=== PATIENT | male | born 1950 | race African-American/Black ===

== ENCOUNTER → 2016-10-16 | Day surgery (SDC) | payer MEDICARE, MEDICAID ==
--- NOTE | 2016-10-15 13:38 | Pre-Procedure Note/Attestation ---
Pre-Procedure Note/Attestation Complete Prior to Procedure Planned Procedure: right Procedure Narrative: phaco with IOL Indications for Procedure Pre-Operative Diagnosis: cataract Attestation I attest that I discussed the nature of the procedure; its benefits; risks and complications; and alternatives (and the risks and benefits of such alternatives ), prior to the procedure, with the patient (or the patient's legal parts sales representative). I attest that, if there was a reasonable possibility of needing a blood transfusion, the patient (or the patient's legal parts sales representative) was given the [facility] standardized written summary, pursuant to the [place] Blood Safety Act ([place] Health and Safety Code # 1645, as amended). I attest that I re-evaluated the patient just prior to the surgery and that there has been no change in the patient's H&P, except as documented below: NATALY HUYNH Oct 15, 2016 13:38
--- NOTE | 2016-10-15 13:39 | Opthalmology H&P ---
Ophthalmology H&P H&P Chief Complaint: decreased vision in right eye HPI Vision Affects Ability to: read, focus/use eyes together HPI Narrative blurry vision Exam Visual Acuity: OD: 20/125 OS: 20/180 Tension: OD: 15 OS: 15 Eye Exam: normal OU: anterior chambers, corneas, external exam, levator function, marginal reflex distance, palpebral fissure-width, findings: fundus exam - NPDR OU, lens - OD: psc OS: psc Assessment/Plan Diagnosis: (1) Cataract Treatment Plan: cataract extraction w/ lens implant Goals of Treatment: improvement of vision, enhance quality of life Attestation Attestation The risks and benefits of the surgery as well as alternative procedures were explained to the patient in detail. NATALY HUYNH Oct 15, 2016 13:39
[2016-10-16] VITALS (8 sets, daily range): BP systolic 158–189; BP diastolic 76–110
[~2016-10-16] VITALS: Ht 188 cm; Wt 127.0 kg
[~2016-10-16] MED LIST: ALBUTEROL2.5 MG/3 M INH; ANORO ELLIPTA1 EACH INH; Akten 3.5% 1ml Btl RIGHT EYE ONE; BENADRYL25 MG ORAL; BSS 15ml BTL ONE; BSS 500ml btl ONE; Dexamethasone 4mg/ml vial ONE; EPINEPHrine 1mg/1ml Amp ONE; FOLIC ACID1 MG ORAL; GABAPENTIN PO; LEVEMIR FL100 UNIT/1 SUBQ; LR 1000ml ONE; Maxitrol Opth Oint 3.5gm ONE; Midazolam 2mg/2ml Inj ONE; NOVOLOG100 UNIT/3 SUBQ; PREDNISONE10 MG ORAL; PROAIR HFA8.5 GM INH; Povidone-Iodine 5% opth solution ONE; Pred Forte 1% Opth Susp 1ml ONE; Propofol 10mg/ml 20ml IV ONE; Sodium Hyaluronate 14 mg/ml 0.85ml ONE; TAMSULOSIN HCL0.4 MG ORAL; Tobramycin Op Soln 0.3% RIGHT EYE ONE; [UNRECOGNIZED DRUG - OTHER] PO; acetaZOLAMIDE 500mg Inj ONE; fentaNYL 100 mcg/2 mL IV ONE
[2016-10-16] MEDS: Cyclopentolate 1% Opth Sol RIGHT EYE SCH ×3 (08:05→08:35)
[2016-10-16] MEDS: Diclofenac Sod 0.1% Op Soln RIGHT EYE SCH ×3 (08:07→08:24)
[2016-10-16] MEDS: Tropicamide 1% Opth Soln RIGHT EYE SCH ×3 (08:07→08:35)
[2016-10-16] MEDS: Phenylephrine 10% Opth Soln 5ml RIGHT EYE SCH ×2 (08:23→08:35)
--- NOTE | 2016-10-16 14:14 | Anethesia Preoperative Eval ---
Anesthesia Pre-op PMH/ROS General Date of Evaluation: Oct 16, 2016 Time of Evaluation: 09:10 Anesthesiologist: Jerry ASA Score: ASA 3 Mallampati Score Class I : Soft palate, uvula, fauces, pillars visible Class II: Soft palate, uvula, fauces visible Class III: Soft palate, base of uvula visible Class IV: Only hard plate visible Mallampati Classification: Class III Surgeon: Bessy Diagnosis: R eye cataract Surgical Procedure: R eye catarct extraction with IOL Anesthesia History: none Family History: no anesthesia problems Allergies: Coded Allergies: AZATHIOPRINE (Verified Adverse Reaction, Intermediate, nausea; vomiting, ) LORATADINE (Verified Adverse Reaction, Mild, nausea, 10/16/16) Past Medical History Cardiovascular: Reports: HTN - poorly controled, Denies: CAD, VA, arrhythmia, other, valve dz Pulmonary: Reports: COPD, ROB Gastrointestinal/Genitourinary: Reports: ESRD - no HD, GERD, Denies: CRI, other Neurologic/Psychiatric: Reports: depression/anxiety, Denies: CVA, TIA, dementia, other Endocrine: Reports: DM - on insulin, Denies: hypothyroidism, other, steroids HEENT: Reports: cataract (L), cataract (R), Denies: NULATO (L), NULATO (R), glaucoma, other Hematology/Immune: Reports: anemia - of chronic d-se, Denies: DVT, bleeding disorder, other Musculoskeletal/Integumentary: Denies: DDD, DJD, OA, RA, edema, other Other: obesity - morbid PMH Narrative: as above PSxH Narrative: see chart Anesthesia Pre-op Phys. Exam Physician Exam Last Vital Signs Date Time Temp Pulse Resp B/P Pulse Ox O2 Delivery O2 Flow Rate FiO2 10/16/16 11:00 78 23 166/85 98 Room Air 10/16/16 10:31 97.4 10/16/16 10:10 3.0 Constitutional: NAD Neurologic: CN 2-12 intact Cardiovascular: RRR, no M/R/G Respiratory: other - some wheezing Gastrointestinal: S/NT/ND Airway Exam Mallampati Score: Class III MO: limited Neck: short ROM: limited Teeth: missing Dentures: no lower, no upper Anesthesia Pre-op A/P Labs see chart Studies Pre-op Studies: EKG - SR Risk Assessment & Plan Assessment: ASA 3 Plan: MAC Status Change Before Surgery: MYRNA Garcia M.D. Oct 16, 2016 14:14
--- NOTE | 2016-10-16 14:17 | Immediate Post-Op Evaluation ---
Immediate Post-Op Evalulation Immediate Post-Op Evalulation Procedure: R eye cataract extraction with IOL Date of Evaluation: Oct 16, 2016 Time of Evaluation: 09:48 IV Fluids: 200 Blood Products: none Estimated Blood Loss: none Urinary Output: none Blood Pressure Systolic: 174 Blood Pressure Diastolic: 174 Pulse Rate: 76 Respiratory Rate: 26 O2 Sat by Pulse Oximetry: 97 Temperature (Fahrenheit): 97.4 Pain Score (1-10): 2 Nausea: No Vomiting: No Complications none Patient Status: awake, patent, none Hydration Status: adequate MYRNA JIMENEZ M.D. Oct 16, 2016 14:17
--- NOTE | 2016-10-16 14:19 | 48 Hour Post Anesthesia Eval ---
Post Anesthesia Evaluation Procedure: R eye cataract extraction with IOL Date of Evaluation: Oct 16, 2016 Time of Evaluation: 14:18 Blood Pressure Systolic: 168 0: 76 Pulse Rate: 68 Respiratory Rate: 24 Temperature (Fahrenheit): 97.6 O2 Sat by Pulse Oximetry: 99 Airway: patent Nausea: No Vomiting: No Pain Intensity: 1 Hydration Status: adequate Cardiopulmonary Status: stable Mental Status/LOC: patient returned to baseline Follow-up Care/Observations: n/a Post-Anesthesia Complications: none Follow-up care needed: ready to discharge MYRNA JIMENEZ M.D. Oct 16, 2016 14:19
--- NOTE | 2016-10-20 12:29 | Brief Operative Note ---
Immediate Post Operative Note Operative Note Chief Complaint: bluryy vision, Pre-op Diagnosis: cataract, OD Procedure: phaco with IOL, OD Post-op Diagnosis: Pseudophakia, OD Post-op Diagnosis: same as pre-op Findings: consistent w/pre-op dx studies Surgeon: Bessy Anesthesiologist: Jerry Anesthesia: MAC Specimen: none Complications: none Estimated Blood Loss: none Drains: none Implant(s) used?: Yes NATALY HUYNH Oct 20, 2016 12:29
--- NOTE | 2016-10-20 12:30 | Operative Note - PDOC ---
Operative Note Operative Note Date of Operation/Procedure: Oct 16, 2016 Chief Complaint: bluryy vision, Pre-op Diagnosis: cataract, OD Procedure: phaco with IOL, OD Post-op Diagnosis: Pseudophakia, OD Post-op Diagnosis: same as pre-op Operative Findings: consistent w/pre-op dx studies Surgeon: Bessy Anesthesiologist: Jerry Anesthesia: MAC Specimen: none Complications: none Estimated Blood Loss: none Drains: none Implant(s) used?: Yes Indications for Procedure cataract Description of Procedure This patient has been complaining visually significant cataract in the affected eye with the best corrected visual acuity under moderate glare conditions worse. The patient complains of difficulties with glare in performing activities of daily living and wants to manage personal affairs with comfort and accuracy and see well enough to move with safety at home and outdoors. ~~~ The risks, benefits and alternatives of the procedure were discussed with the patient in the office prior to scheduling surgery. All questions from the patient were answered after the surgical procedure was explained in detail. The risks of the procedure as explained to the patient include, but are not limited to, pain, infection, bleeding, loss of vision, retinal detachment, need for further surgery, loss of lens nucleus, double vision, etc. Alternative procedures were discussed which include, to do nothing or seek a second opinion. Informed consent for this procedure was obtained from the patient. The patient was referred to a primary care physician for a cardiopulmonary clearance prior to surgery, after proper evaluation was done patient was properly scheduled for outpatient surgery. The patient was brought to the operating room where the anesthesiologist established I.V. lines and cardiac monitoring leads. Mild intravenous sedation was administered.~~ The patient was then prepared with a 5% solution of povidone -iodine to the conjunctival fornix and lashes, and a 10% solution of povidone- iodine to the lids and periorbital skin. The patient was then draped in the usual sterile fashion. A lid speculum was then placed in the operative eye. A keratome blade was then used to create a biplanar incision into the anterior chamber. Viscoelastics was then instilled into the anterior chamber. A capsulorrhexis was then fashioned with an utrata forceps. BSS and a cannula were then used to hydrodissect and hydro delineate the lens. Paracentesis incision was made at 3 o'clock with sharp blade. The phacoemulsification unit, after being properly adjusted~ and tested, was then used to emulsify the nucleus. Residual cortical material was aspirated with the irrigation and aspiration unit. Healon was then instilled into the anterior chamber. The corneal wound was then enlarged to the size of the optic with the alejandra keratome blade. The intraocular lens was then inspected for right~ power and size~ and thought to be satisfactory. Then the lens was gently placed in the capsular bag. Positioning within the capsular bag was confirmed by direct visualization. Viscoelastics~ was removed from the anterior chamber using the irrigation and aspiration unit. The corneal wound was then tested for leaks and none were found. The lid speculum were then removed. Sponge and needle counts were correct. An eye patch and shield were placed over the operative eye. The patient was taken to the recovery room in stable condition. There were no complications. The patient tolerated the procedure well. The patient was then transferred to the ambulatory surgery unit in stable and satisfactory condition , was given detailed written instructions and asked to follow up~ in the office the next day. ~ ~ Dictated & Transcribed: [facility] Gurmeet PORRAS JAMES Oct 20, 2016 12:30
== END | disposition home or self-care (01) ==
LOC: SUR 06:05
DX: H26.9 Unspecified cataract (principal); I12.9 Hypertensive chronic kidney disease with stage 1 through stage 4 chronic kidney disease, or unspecified chronic kidney disease; N18.4 Chronic kidney disease, stage 4 (severe); I25.10 Atherosclerotic heart disease of native coronary artery without angina pectoris; I50.9 Heart failure, unspecified; I73.9 Peripheral vascular disease, unspecified; J44.9 Chronic obstructive pulmonary disease, unspecified; J45.909 Unspecified asthma, uncomplicated; G47.33 Obstructive sleep apnea (adult) (pediatric); M19.90 Unspecified osteoarthritis, unspecified site; N40.0 Benign prostatic hyperplasia without lower urinary tract symptoms; E11.9 Type 2 diabetes mellitus without complications; D63.1 Anemia in chronic kidney disease; E66.01 Morbid (severe) obesity due to excess calories; F32.9 Major depressive disorder, single episode, unspecified; F41.9 Anxiety disorder, unspecified; Z91.09 Other allergy status, other than to drugs and biological substances
CPT/HCPCS: 66984; 82962; J0171; J1100; J1120; J2250; J2704; J3010; J3370; J7120; V2632; 94003; 94150

== ENCOUNTER 2017-07-23 20:43 | Inpatient (IN) | payer MEDICARE, MEDICAID ==
[~2017-07-23] VITALS: Ht 185.4 cm; Wt 111.6 kg
[~2017-07-23 20:43] MED LIST changes: -Akten 3.5% 1ml Btl RIGHT EYE ONE; -BSS 15ml BTL ONE; -BSS 500ml btl ONE; -Dexamethasone 4mg/ml vial ONE; -EPINEPHrine 1mg/1ml Amp ONE; -LR 1000ml ONE; -Maxitrol Opth Oint 3.5gm ONE; -Midazolam 2mg/2ml Inj ONE; -Povidone-Iodine 5% opth solution ONE; -Pred Forte 1% Opth Susp 1ml ONE; -Propofol 10mg/ml 20ml IV ONE; -Sodium Hyaluronate 14 mg/ml 0.85ml ONE; -Tobramycin Op Soln 0.3% RIGHT EYE ONE; -acetaZOLAMIDE 500mg Inj ONE; -fentaNYL 100 mcg/2 mL IV ONE
[2017-07-24 01:50] VITALS: BP 140/93
[2017-07-24 04:00] VITALS: BP 145/86
[2017-07-24] MEDS: NovoLOG Insulin Flexpen SUBQ SCH ×4 (07:19→20:55)
[2017-07-24 08:00] VITALS: BP 165/92
[2017-07-24] MEDS ORDERED: Aspirin Baby 81mg ORAL SCH (09:00)
[2017-07-24] MEDS ORDERED: Torsemide 10mg tab ORAL SCH (09:00)
[2017-07-24] MEDS ORDERED: Spironolactone 25mg tab ORAL SCH (09:00)
[2017-07-24] MEDS: Carvedilol 12.5mg tab ORAL SCH ×2 (10:06→20:52)
[2017-07-24 11:08] LABS: BASOPHILS % (AUTO) 0.8 % (0.0-2.0); EOSINOPHILS % (AUTO) 10.7 % (0.0-3.0); HEMATOCRIT 31.7 % (42.0-52.0); HEMOGLOBIN 10.2 G/DL (14.2-18.0); LYMPHOCYTES % (AUTO) 24.8 % (20.0-45.0); MEAN CORPUSCULAR VOLUME 94 FL (80-99); MONOCYTES % (AUTO) 6.2 % (1.0-10.0); NEUTROPHILS % (AUTO) 57.6 % (45.0-75.0); PLATELET COUNT 452 K/UL (150-450); RED BLOOD COUNT 3.39 M/UL (4.70-6.10); RED CELL DISTRIBUTION WIDTH 15.2 % (11.6-14.8); WHITE BLOOD COUNT 10.9 K/UL (4.8-10.8)
[2017-07-24 11:29] LABS: ALANINE AMINOTRANSFERASE 18 U/L (12-78); ALBUMIN 3.1 G/DL (3.4-5.0); ALBUMIN/GLOBULIN RATIO 0.6 (1.0-2.7); ALKALINE PHOSPHATASE 120 U/L (46-116); ANION GAP 10 mmol/L (5-15); ASPARTATE AMINO TRANSFERASE 17 U/L (15-37); BILIRUBIN,TOTAL 0.2 MG/DL (0.2-1.0); BLOOD UREA NITROGEN 37 mg/dL (7-18); CALCIUM 7.9 MG/DL (8.5-10.1); CARBON DIOXIDE 24 MMOL/L (21-32); CHLORIDE 105 MMOL/L (98-107); CHOLESTEROL 249 MG/DL (< 200); HDL CHOLESTEROL 30 MG/DL (40-60); PHOSPHORUS 5.1 MG/DL (2.5-4.9); POTASSIUM 5.1 MMOL/L (3.5-5.1); SODIUM 139 MMOL/L (136-145); TRIGLYCERIDES 371 MG/DL (30-150)
[2017-07-24] MEDS: Heparin 5000 units/ml inj SUBQ SCH ×2 (11:31→20:59)
[2017-07-24] MEDS: Levemir Flexpen SUBQ SCH (11:39)
[2017-07-24 12:00] VITALS: BP 153/88
--- NOTE | 2017-07-24 14:05 | History & Physical ---
History and Physical History & Physicial Dictated for Int Med-Dr Fontanez no. [id number]. NIEVES LAGUNA Jul 24, 2017 14:05
--- NOTE | 2017-07-24 15:48 | Consultation ---
Consult Note Consult Note asked to eval for renal failure- CHIEF COMPLAINT: The patient is a 66-year-old male, presents with chief complaint of chest pain and dizziness. The patient has a history of congestive heart failure and COPD. The patient states yesterday he awoke and took his blood pressure. Blood pressure was 148/89. The patient took a p.r.n. clonidine and Coreg. The patient states his blood pressure dropped to 98/60. The patient then was on his way to get his nitroglycerin from the bathroom. The patient fell. The patient states he was having dizziness. The patient denies loss of consciousness. The patient states he fell "unsteady". The patient also began to experience left-sided chest pain, which lasted approximately 5 to 10 minutes. The patient called EMS. The patient presented initially to [facility] emergency room. The patient is transferred to [facility] for insurance purposes. The patient is admitted for chest pain to rule out acute coronary syndrome and vertigo. PAST MEDICAL HISTORY: 1. Congestive heart failure. 2. Chronic obstructive pulmonary disease. 3. Diabetes type 2. 4. Hypertension. 5. Hypercholesterolemia. 6. Systemic lupus. 7. Renal failure. examined- data reviewed Patient aware of CKD and was told to need HD soon Assessment/Plan CKD boarderline need for HD Lupus DM HTN Obese High Cholestrol BPH COPD Anemia CAD Plan: Adjust bp meds Add nitrate asa beta blockers SQ heparin Anemia mejía Optimize cardiac status per cardiology Kidney KATHI and 2D Echo monitor troponin I Per orders AVELINA MARTE Jul 24, 2017 15:48
[2017-07-24 16:00] VITALS: BP 135/78
--- NOTE | 2017-07-24 16:47 | History and Physical Report ---
DATE OF ADMISSION: 07/23/2017 CHIEF COMPLAINT: The patient is a 66-year-old male, presents with chief complaint of chest pain and dizziness. HISTORY OF PRESENT ILLNESS: The patient has a history of congestive heart failure and COPD. The patient states yesterday he awoke and took his blood pressure. Blood pressure was 148/89. The patient took a p.r.n. clonidine and Coreg. The patient states his blood pressure dropped to 98/60. The patient then was on his way to get his nitroglycerin from the bathroom. The patient fell. The patient states he was having dizziness. The patient denies loss of consciousness. The patient states he fell "unsteady". The patient also began to experience left-sided chest pain, which lasted approximately 5 to 10 minutes. The patient called EMS. The patient presented initially to [facility] emergency room. The patient is transferred to [facility] for insurance purposes. The patient is admitted for chest pain to rule out acute coronary syndrome and vertigo. PAST MEDICAL HISTORY: Significant for 1. Congestive heart failure. 2. Chronic obstructive pulmonary disease. 3. Diabetes type 2. 4. Hypertension. 5. Hypercholesterolemia. 6. Systemic lupus. 7. Renal failure. PAST SURGICAL HISTORY: The patient denies. CURRENT MEDICATIONS: 1. Clonidine 0.1 mg p.o. q.4 h. p.r.n. 2. Zetia 10 mg one tablet p.o. daily. 3. Folic acid 1 mg p.o. daily. 4. Januvia 100 mg p.o. daily. 5. Spironolactone 25 mg p.o. daily. 6. Coreg 12.5 mg p.o. twice daily. 7. Neurontin 300 mg p.o. twice daily. 8. Flomax 0.4 mg p.o. daily. 9. NovoLog sliding scale before breakfast and at bedtime. 10. Levemir 20 units subcutaneously at bedtime. ALLERGIES: 1. Claritin. 2. Imuran. SOCIAL HISTORY: The patient is and is retired. The patient denies tobacco use, having quit in 2006. The patient denies alcohol use, having quit in 2006. REVIEW OF SYSTEMS: CONSTITUTIONAL: The patient denies weight loss or weight gain. The patient denies fevers or chills. HEENT: The patient denies ear or throat pain. The patient denies headache. CARDIOVASCULAR: The patient complains of chest pain as above. The patient denies palpitations. CHEST: The patient denies wheeze or shortness of breath. ABDOMEN: The patient denies nausea, vomiting, diarrhea, or constipation. GENITOURINARY: The patient denies dysuria or increased frequency urination. NEUROMUSCULAR: The patient complains of vertigo as above. The patient denies seizures or generalized weakness. PHYSICAL EXAMINATION: GENERAL: The patient is well-nourished obese male, in no apparent distress. VITAL SIGNS: Temperature 97.3 degrees, respirations 20, pulse 63 and blood pressure 140/93. HEENT: Eyes, pupils equal and responsive to light and accommodation. Extraocular movements are intact. NECK: Supple without lymphadenopathy. CHEST: Lungs are clear to auscultation bilaterally without wheezes or rales. CARDIOVASCULAR: Regular rate. S1 and S2 normal without murmurs, rubs, or gallops. ABDOMEN: Soft, nontender, and nondistended with positive bowel sounds. No evidence of hepatosplenomegaly. Currently, no rebound or guarding noted. EXTREMITIES: Negative for clubbing, cyanosis, or edema. RECTAL/GENITAL: Refused. NEUROLOGIC: Cranial nerves II through XII are grossly intact without focal deficits. Motor strength is 5/5 bilaterally. Deep tendon reflexes are 2+ plantar. LABORATORY AND DIAGNOSTIC DATA: Laboratory studies from [facility], WBC 10.0, hemoglobin 9.2, hematocrit 27.5 and platelets 459,000. Sodium 136, potassium 5.2, chloride 109, CO2 20, BUN 34 creatinine elevated 5.17 and glucose 153. Troponin 0.08. EKG demonstrated normal sinus rhythm approximately 50 beats per minute. No acute ST changes or Q-waves noted. Chest x-ray showed no acute disease. ASSESSMENT: This is a 66-year-old male 1. Near syncope. 2. Chest pain. 3. Renal failure. 4. Hyperkalemia. 5. Anemia. 6. Congestive heart failure. 7. Chronic obstructive pulmonary disease. 8. Diabetes type 2. 9. Hypertension. 10. Hypercholesterolemia. 11. Systemic lupus. TREATMENT: 1. Chest pain. A Cardiology consultation was obtained with Dr. Francis Swenson. We will follow recommendation of Dr. Swenson. Serial troponin levels will be performed. The patient may require a Cardiolite stress test in view of previous coronary artery disease. 2. Near syncope. A Neurology consultation was obtained with Dr. Madrid. Near syncope may be secondary to hypotension as above. 3. Renal failure. A Nephrology consultation is pending with Dr. Oswald. A renal ultrasound is pending. 4. Hyperkalemia, this probably secondary to chronic renal failure as above. 5. Anemia, probably anemia of chronic renal disease. 6. Congestive heart failure, as above. A Cardiology consultation has been obtained with Dr. Francis Swenson. An echocardiogram is pending. 7. Chronic obstructive pulmonary disease. The patient will be offered albuterol p.r.n. 8. Diabetes type 2. Continue Januvia and NovoLog sliding scale as above. 9. Hypertension. Continue Coreg as above. 10. Hypercholesteremia. Continue Zetia as above. 11. Systemic lupus. Brian Almeida M.D. DR: SHEBA JOB#: [id number] CC:
[2017-07-24] MEDS: Tamsulosin 0.4mg cap ORAL SCH (17:11)
[2017-07-24] MEDS: Imdur 30mg tab ORAL SCH (17:11)
[2017-07-24] MEDS: Docusate 100mg cap ORAL SCH (17:16)
[2017-07-24 20:00] VITALS: BP 133/77
[2017-07-24] MEDS: Atorvastatin 80mg tab ORAL SCH (20:51)
[2017-07-24] MEDS ORDERED: Tamsulosin 0.4mg cap ORAL SCH (21:00)
[2017-07-25] VITALS: BP 108/63
[2017-07-25 04:00] VITALS: BP 117/68
[2017-07-25] MEDS: NovoLOG Insulin Flexpen SUBQ SCH ×4 (06:25→21:00)
[2017-07-25 07:40] LABS: BASOPHILS % (AUTO) 0.6 % (0.0-2.0); EOSINOPHILS % (AUTO) 7.9 % (0.0-3.0); HEMATOCRIT 25.2 % (42.0-52.0); HEMOGLOBIN 8.2 G/DL (14.2-18.0); LYMPHOCYTES % (AUTO) 26.3 % (20.0-45.0); MEAN CORPUSCULAR VOLUME 93 FL (80-99); NEUTROPHILS % (AUTO) 58.2 % (45.0-75.0); PLATELET COUNT 430 K/UL (150-450); RED CELL DISTRIBUTION WIDTH 15.2 % (11.6-14.8); WHITE BLOOD COUNT 10.9 K/UL (4.8-10.8)
[2017-07-25 08:00] VITALS: BP 129/75
[2017-07-25 08:02] LABS: ALANINE AMINOTRANSFERASE 11 U/L (12-78); ALBUMIN 2.7 G/DL (3.4-5.0); ALBUMIN/GLOBULIN RATIO 0.6 (1.0-2.7); ALKALINE PHOSPHATASE 102 U/L (46-116); ANION GAP 9 mmol/L (5-15); ASPARTATE AMINO TRANSFERASE 11 U/L (15-37); BILIRUBIN,TOTAL 0.2 MG/DL (0.2-1.0); BLOOD UREA NITROGEN 44 mg/dL (7-18); CALCIUM 7.7 MG/DL (8.5-10.1); CARBON DIOXIDE 20 MMOL/L (21-32); CHLORIDE 106 MMOL/L (98-107); CREATININE 5.4 MG/DL (0.55-1.30); FERRITIN 526 NG/ML (8-388); SODIUM 135 MMOL/L (136-145)
[2017-07-25 08:14] LABS: % IRON SATURATION 41 % (15-50); IRON 60 ug/dL (50-175); TOTAL IRON BINDING CAPACITY 145 ug/dL (250-450)
[2017-07-25 08:16] LABS: CREATINE KINASE 62 U/L (26-308); GAMMA GLUTAMYL TRANSPEPTIDASE 31 U/L (5-85); PHOSPHORUS 5.5 MG/DL (2.5-4.9)
--- NOTE | 2017-07-25 09:00 | Cardiac Electrophysiology PN ---
Subjective Subjective [id number] Objective Last 24 Hour Vital Signs Date Time Temp Pulse Resp B/P (MAP) Pulse Ox O2 Delivery O2 Flow Rate FiO2 07/25/17 04:00 80 07/25/17 04:00 97.5 75 20 117/68 97 07/25/17 00:00 70 07/25/17 00:00 97.0 82 18 108/63 97 07/24/17 20:52 79 133/77 07/24/17 20:00 74 07/24/17 20:00 97.7 79 20 133/77 96 07/24/17 17:11 135/78 07/24/17 17:11 135/78 07/24/17 16:00 97.5 63 18 135/78 99 07/24/17 16:00 62 07/24/17 12:00 97.7 65 18 153/88 98 07/24/17 12:00 65 07/24/17 10:06 63 165/92 07/24/17 10:05 165/92 Intake and Output 07/24/17 07/25/17 18:59 06:59 Intake Total 360 ml Balance 360 ml Intake Oral 360 ml # Voids 3 2 # Bowel Movements 1 Laboratory Tests Test 07/24/17 10:15 07/24/17 17:45 07/25/17 05:30 White Blood Count 10.9 K/UL (4.8-10.8) H 10.9 K/UL (4.8-10.8) H Red Blood Count 3.39 M/UL (4.70-6.10) L 2.70 M/UL (4.70-6.10) L Hemoglobin 10.2 G/DL (14.2-18.0) L 8.2 G/DL (14.2-18.0) L Hematocrit 31.7 % (42.0-52.0) L 25.2 % (42.0-52.0) L Mean Corpuscular Volume 94 FL (80-99) 93 FL (80-99) Mean Corpuscular Hemoglobin 30.1 PG (27.0-31.0) 30.4 PG (27.0-31.0) Mean Corpuscular Hemoglobin Concent 32.1 G/DL (32.0-36.0) 32.6 G/DL (32.0-36.0) Red Cell Distribution Width 15.2 % (11.6-14.8) H 15.2 % (11.6-14.8) H Platelet Count 452 K/UL (150-450) H 430 K/UL (150-450) Mean Platelet Volume 6.1 FL (6.5-10.1) L 6.1 FL (6.5-10.1) L Neutrophils (%) (Auto) 57.6 % (45.0-75.0) 58.2 % (45.0-75.0) Lymphocytes (%) (Auto) 24.8 % (20.0-45.0) 26.3 % (20.0-45.0) Monocytes (%) (Auto) 6.2 % (1.0-10.0) 7.0 % (1.0-10.0) Eosinophils (%) (Auto) 10.7 % (0.0-3.0) H 7.9 % (0.0-3.0) H Basophils (%) (Auto) 0.8 % (0.0-2.0) 0.6 % (0.0-2.0) Prothrombin Time 10.0 SEC (9.30-11.50) Prothromb Time International Ratio 1.0 (0.9-1.1) Activated Partial Thromboplast Time 25 SEC (23-33) Sodium Level 139 MMOL/L (136-145) 135 MMOL/L (136-145) L Potassium Level 5.1 MMOL/L (3.5-5.1) 5.0 MMOL/L (3.5-5.1) Chloride Level 105 MMOL/L (98-107) 106 MMOL/L (98-107) Carbon Dioxide Level 24 MMOL/L (21-32) 20 MMOL/L (21-32) L Anion Gap 10 mmol/L (5-15) 9 mmol/L (5-15) Blood Urea Nitrogen 37 mg/dL (7-18) H 44 mg/dL (7-18) H Creatinine 5.0 MG/DL (0.55-1.30) H 5.4 MG/DL (0.55-1.30) H Estimat Glomerular Filtration Rate 14.2 mL/min (>60) 13.0 mL/min (>60) Glucose Level 198 MG/DL (74-106) H 163 MG/DL (74-106) H Hemoglobin A1c 8.6 % (4.3-6.0) H Calcium Level 7.9 MG/DL (8.5-10.1) L 7.7 MG/DL (8.5-10.1) L Phosphorus Level 5.1 MG/DL (2.5-4.9) H 5.5 MG/DL (2.5-4.9) H Magnesium Level 1.5 MG/DL (1.8-2.4) L 1.3 MG/DL (1.8-2.4) L Total Bilirubin 0.2 MG/DL (0.2-1.0) 0.2 MG/DL (0.2-1.0) Aspartate Amino Transf (AST/SGOT) 17 U/L (15-37) 11 U/L (15-37) L Alanine Aminotransferase (ALT/SGPT) 18 U/L (12-78) 11 U/L (12-78) L Alkaline Phosphatase 120 U/L (46-116) H 102 U/L (46-116) Troponin I 0.235 ng/mL (0.000-0.056) 0.228 ng/mL (0.000-0.056) 0.149 ng/mL (0.000-0.056) Total Protein 7.9 G/DL (6.4-8.2) 7.2 G/DL (6.4-8.2) Albumin 3.1 G/DL (3.4-5.0) L 2.7 G/DL (3.4-5.0) L Globulin 4.8 g/dL 4.5 g/dL Albumin/Globulin Ratio 0.6 (1.0-2.7) L 0.6 (1.0-2.7) L Triglycerides Level 371 MG/DL (30-150) H Cholesterol Level 249 MG/DL (< 200) H LDL Cholesterol 129 mg/dL (<100) H HDL Cholesterol 30 MG/DL (40-60) L Cholesterol/HDL Ratio 8.3 (3.3-4.4) H Uric Acid 8.3 MG/DL (2.6-7.2) H Iron Level 60 ug/dL (50-175) Total Iron Binding Capacity 145 ug/dL (250-450) L Percent Iron Saturation 41 % (15-50) Unsaturated Iron Binding 85 ug/dL (112-346) L Ferritin 526 NG/ML (8-388) H Gamma Glutamyl Transpeptidase 31 U/L (5-85) Total Creatine Kinase 62 U/L (26-308) C-Reactive Protein, Quantitative 2.0 mg/dL (0.00-0.90) H Pro-B-Type Natriuretic Peptide 4064 pg/mL (0-125) H Vitamin B12 Level 500 PG/ML (193-986) Folate 9.7 NG/ML (8.6-58.9) Thyroid Stimulating Hormone (TSH) 1.184 uiU/mL (0.358-3.740) WILFREDO HECK Jul 25, 2017 09:00
[2017-07-25] MEDS: Docusate 100mg cap ORAL SCH ×3 (09:18→17:27)
[2017-07-25] MEDS: Tamsulosin 0.4mg cap ORAL SCH ×2 (09:18→12:45)
[2017-07-25] MEDS: Imdur 30mg tab ORAL SCH (09:19)
[2017-07-25] MEDS: Carvedilol 12.5mg tab ORAL SCH ×2 (09:20→20:53)
[2017-07-25] MEDS: Heparin 5000 units/ml inj SUBQ SCH ×2 (09:23→20:55)
[2017-07-25] MEDS: Levemir Flexpen SUBQ SCH (09:24)
[2017-07-25] MEDS ORDERED: Lexiscan 0.4mg/5ml syringe IV SCH (10:00)
--- NOTE | 2017-07-25 10:42 | Nephrology Progress Note ---
Assessment/Plan Problem List: (1) End stage chronic kidney disease (2) Lupus (3) Diabetic nephropathy Assessment CKD Lupus COPD DM HTN Obese High Cholestrol BPH Anemia CAD Plan Plan: suggested need for HD- Adamantly refused Adjust bp meds Add nitrate asa beta blockers SQ heparin Anemia mejía Optimize cardiac status monitor troponin I add Phos binders risks of no HD explained- patient aware Subjective ROS Limited/Unobtainable: No Constitutional: Reports: other - feels better Objective Objective Last 24 Hour Vital Signs Date Time Temp Pulse Resp B/P (MAP) Pulse Ox O2 Delivery O2 Flow Rate FiO2 07/25/17 09:20 80 117/68 07/25/17 09:19 117/68 07/25/17 04:00 80 07/25/17 04:00 97.5 75 20 117/68 97 07/25/17 00:00 70 07/25/17 00:00 97.0 82 18 108/63 97 07/24/17 20:52 79 133/77 07/24/17 20:00 74 07/24/17 20:00 97.7 79 20 133/77 96 07/24/17 17:11 135/78 07/24/17 17:11 135/78 07/24/17 16:00 97.5 63 18 135/78 99 07/24/17 16:00 62 07/24/17 12:00 97.7 65 18 153/88 98 07/24/17 12:00 65 Intake and Output 07/24/17 07/25/17 19:00 07:00 Intake Total 360 ml Balance 360 ml Intake Oral 360 ml # Voids 3 2 # Bowel Movements 1 Laboratory Tests 07/24/17 17:45: Troponin I 0.228H 07/25/17 05:30: Troponin I 0.149H, White Blood Count 10.9H, Red Blood Count 2.70L, Hemoglobin 8.2L, Hematocrit 25.2L, Mean Corpuscular Volume 93, Mean Corpuscular Hemoglobin 30.4, Mean Corpuscular Hemoglobin Concent 32.6, Red Cell Distribution Width 15.2H, Platelet Count 430, Mean Platelet Volume 6.1L, Neutrophils (%) (Auto) 58.2, Lymphocytes (%) (Auto) 26.3, Monocytes (%) (Auto) 7.0, Eosinophils (%) ( Auto) 7.9H, Basophils (%) (Auto) 0.6, Sodium Level 135L, Potassium Level 5.0, Chloride Level 106, Carbon Dioxide Level 20L, Anion Gap 9, Blood Urea Nitrogen 44H, Creatinine 5.4H, Estimat Glomerular Filtration Rate 13.0, Glucose Level 163H, Uric Acid 8.3H, Calcium Level 7.7L, Phosphorus Level 5.5H, Magnesium Level 1.3L, Iron Level 60, Total Iron Binding Capacity 145L, Percent Iron Saturation 41, Unsaturated Iron Binding 85L, Ferritin 526H, Total Bilirubin 0.2 , Gamma Glutamyl Transpeptidase 31, Aspartate Amino Transf (AST/SGOT) 11L, Alanine Aminotransferase (ALT/SGPT) 11L, Alkaline Phosphatase 102, Total Creatine Kinase 62, C-Reactive Protein, Quantitative 2.0H, Pro-B-Type Natriuretic Peptide 4064H, Total Protein 7.2, Albumin 2.7L, Globulin 4.5, Albumin/Globulin Ratio 0.6L, Vitamin B12 Level 500, Folate 9.7, Thyroid Stimulating Hormone (TSH) 1.184 Height (Feet): 6 Height (Inches): 1.00 Weight (Pounds): 250 General Appearance: no apparent distress, other Cardiovascular: normal rate Respiratory/Chest: decreased breath sounds Abdomen: soft, other - obese Objective no other change AVELINA MARTE Jul 25, 2017 10:42
[2017-07-25 12:00] VITALS: BP 147/71
--- NOTE | 2017-07-25 12:24 | Internal Med Progress Note ---
Subjective Date of Service: Jul 25, 2017 Physician Name Nieves Laguna Attending Physician Angel Fontanez MD Current Medications Medications (Trade) Dose Ordered Sig/Yefri Route PRN Reason Start Time Stop Time Status Last Admin Dose Admin Allopurinol (Zyloprim) 200 mg DAILY ORAL 07/25/17 11:00 08/24/17 10:59 Aspirin (ASA) 325 mg DAILY ORAL 07/25/17 09:00 08/24/17 08:59 07/25/17 09:19 Atorvastatin Calcium (Lipitor) 80 mg QHS ORAL 07/24/17 21:00 08/23/17 20:59 07/24/17 20:51 Carvedilol (Coreg) 12.5 mg EVERY 12 HOURS ORAL 07/24/17 09:00 08/23/17 08:59 07/25/17 09:20 Clonidine HCl (Catapres) 0.1 mg Q4H PRN ORAL bp over 170 syst 07/24/17 16:00 08/23/17 15:59 07/24/17 17:11 Dextrose (Dextrose 50%) STAT PRN IV Hypoglycemia 07/24/17 03:30 08/23/17 03:29 Docusate Sodium (Colace) 100 mg THREE TIMES A DAY ORAL 07/24/17 18:00 08/23/17 17:59 07/25/17 09:18 EZETIMIBE (Zetia) 10 mg DAILY ORAL 07/24/17 09:00 08/23/17 08:59 07/25/17 09:18 Gabapentin (Neurontin) 300 mg THREE TIMES A DAY ORAL 07/24/17 09:00 08/23/17 08:59 07/25/17 09:19 Heparin Sodium (Porcine) (Heparin 5000 units/ml) 5,000 units EVERY 12 HOURS SUBQ 07/24/17 09:00 08/23/17 08:59 07/25/17 09:23 Insulin Aspart (NovoLOG) BEFORE MEALS AND HS SUBQ 07/24/17 06:30 08/23/17 06:29 07/25/17 06:25 Insulin Detemir (Levemir) 10 units DAILY SUBQ 07/24/17 09:00 08/23/17 08:59 07/25/17 09:24 Isosorbide Mononitrate (Imdur) 30 mg DAILY ORAL 07/24/17 17:00 08/23/17 16:59 07/25/17 09:19 Magnesium Sulfate 100 ml @ 100 mls/hr Q1H IVPB 07/25/17 11:00 07/25/17 12:59 Metolazone (Zaroxolyn) 10 mg DAILY ORAL 07/24/17 17:00 08/23/17 16:59 07/25/17 09:19 Pantoprazole (Protonix) 40 mg DAILY ORAL 07/24/17 17:00 08/23/17 16:59 07/25/17 09:18 Regadenoson (Lexiscan) 0.4 mg ONCE PRN IV STRESS TEST 07/26/17 08:00 07/26/17 18:00 Sevelamer Carbonate (Renvela) 800 mg THREE TIMES A DAY ORAL 07/25/17 13:00 08/24/17 12:59 Tamsulosin HCl (Flomax) 0.4 mg BID ORAL 07/24/17 18:00 08/23/17 20:59 07/25/17 09:18 Allergies: Coded Allergies: AZATHIOPRINE (Verified Adverse Reaction, Intermediate, nausea; vomiting, ) LORATADINE (Verified Adverse Reaction, Mild, nausea, 10/16/16) ROS Limited/Unobtainable: No Constitutional: Reports: no symptoms HEENT: Reports: no symptoms Cardiovascular: Reports: chest pain Respiratory: Reports: no symptoms Gastrointestinal/Abdominal: Reports: no symptoms Genitourinary: Reports: no symptoms Neurologic/Psychiatric: Reports: no symptoms Subjective 66 YO M admitted with chest pain and renal failure. Await cardiolite stress test. Cover for [facility] Tk-Dr Fontanez. Objective Last Vital Signs Date Time Temp Pulse Resp B/P (MAP) Pulse Ox O2 Delivery O2 Flow Rate FiO2 07/25/17 09:20 80 117/68 07/25/17 08:00 97.0 18 98 General Appearance: WD/WN, no apparent distress, alert EENT: PERRL/EOMI, normal ENT inspection Neck: non-tender, normal alignment, supple, normal inspection Cardiovascular: normal peripheral pulses, normal rate, regular rhythm, no gallop/murmur, no JVD Respiratory/Chest: chest wall non-tender, lungs clear, normal breath sounds, no respiratory distress, no accessory muscle use Abdomen: normal bowel sounds, non tender, soft, no organomegaly, no mass Extremities: normal range of motion, non-tender 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, no motor/sensory deficits Skin: normal pigmentation, warm/dry Laboratory Tests Test 07/24/17 17:45 07/25/17 05:30 Troponin I 0.228 ng/mL (0.000-0.056) 0.149 ng/mL (0.000-0.056) White Blood Count 10.9 K/UL (4.8-10.8) H Red Blood Count 2.70 M/UL (4.70-6.10) L Hemoglobin 8.2 G/DL (14.2-18.0) L Hematocrit 25.2 % (42.0-52.0) L Mean Corpuscular Volume 93 FL (80-99) Mean Corpuscular Hemoglobin 30.4 PG (27.0-31.0) Mean Corpuscular Hemoglobin Concent 32.6 G/DL (32.0-36.0) Red Cell Distribution Width 15.2 % (11.6-14.8) H Platelet Count 430 K/UL (150-450) Mean Platelet Volume 6.1 FL (6.5-10.1) L Neutrophils (%) (Auto) 58.2 % (45.0-75.0) Lymphocytes (%) (Auto) 26.3 % (20.0-45.0) Monocytes (%) (Auto) 7.0 % (1.0-10.0) Eosinophils (%) (Auto) 7.9 % (0.0-3.0) H Basophils (%) (Auto) 0.6 % (0.0-2.0) Sodium Level 135 MMOL/L (136-145) L Potassium Level 5.0 MMOL/L (3.5-5.1) Chloride Level 106 MMOL/L (98-107) Carbon Dioxide Level 20 MMOL/L (21-32) L Anion Gap 9 mmol/L (5-15) Blood Urea Nitrogen 44 mg/dL (7-18) H Creatinine 5.4 MG/DL (0.55-1.30) H Estimat Glomerular Filtration Rate 13.0 mL/min (>60) Glucose Level 163 MG/DL (74-106) H Uric Acid 8.3 MG/DL (2.6-7.2) H Calcium Level 7.7 MG/DL (8.5-10.1) L Phosphorus Level 5.5 MG/DL (2.5-4.9) H Magnesium Level 1.3 MG/DL (1.8-2.4) L Iron Level 60 ug/dL (50-175) Total Iron Binding Capacity 145 ug/dL (250-450) L Percent Iron Saturation 41 % (15-50) Unsaturated Iron Binding 85 ug/dL (112-346) L Ferritin 526 NG/ML (8-388) H Total Bilirubin 0.2 MG/DL (0.2-1.0) Gamma Glutamyl Transpeptidase 31 U/L (5-85) Aspartate Amino Transf (AST/SGOT) 11 U/L (15-37) L Alanine Aminotransferase (ALT/SGPT) 11 U/L (12-78) L Alkaline Phosphatase 102 U/L (46-116) Total Creatine Kinase 62 U/L (26-308) C-Reactive Protein, Quantitative 2.0 mg/dL (0.00-0.90) H Pro-B-Type Natriuretic Peptide 4064 pg/mL (0-125) H Total Protein 7.2 G/DL (6.4-8.2) Albumin 2.7 G/DL (3.4-5.0) L Globulin 4.5 g/dL Albumin/Globulin Ratio 0.6 (1.0-2.7) L Vitamin B12 Level 500 PG/ML (193-986) Folate 9.7 NG/ML (8.6-58.9) Thyroid Stimulating Hormone (TSH) 1.184 uiU/mL (0.358-3.740) Intake and Output 07/24/17 07/25/17 19:00 07:00 Intake Total 360 ml Balance 360 ml Intake Oral 360 ml # Voids 3 2 # Bowel Movements 1 Assessment/Plan Problem List: (1) Near syncope (2) Hyperkalemia (3) Anemia, iron deficiency Assessment & Plan: Cont IV venofer. Guaiac all stools. Await GI consult. (4) Coronary artery disease (5) CHF (congestive heart failure) (6) COPD (chronic obstructive pulmonary disease) (7) Diabetes mellitus, type II Assessment & Plan: Continue novlog sliding scale. (8) Hypertension Assessment & Plan: Cont catapres and coreg (9) Hypercholesteremia Assessment & Plan: Continue zetia (10) Chest pain Assessment & Plan: Await nuclear cardiac stress test. See cardiology note. (11) End stage chronic kidney disease Assessment & Plan: Await renal ultrasound. See nephrology note. (12) Lupus (13) Diabetic nephropathy Status: not improved NIEVES LAGUNA Jul 25, 2017 12:24
[2017-07-25] MEDS: Allopurinol 100mg Tab ORAL SCH (12:45)
[2017-07-25 16:00] VITALS: BP 151/76
[2017-07-25 20:00] VITALS: BP 145/81
[2017-07-25] MEDS: Atorvastatin 80mg tab ORAL SCH (20:53)
[2017-07-25] MEDS ORDERED: Atorvastatin 20mg tab ORAL SCH (21:00)
[2017-07-26] VITALS: BP 132/76
[2017-07-26 04:00] VITALS: BP 128/62
--- NOTE | 2017-07-26 04:30 | Consultation ---
DATE OF CONSULTATION: 07/25/2017 CARDIOLOGY CONSULTATION CONSULTING PHYSICIAN: Francis Swenson M.D. REFERRING PHYSICIAN: Angel Fontanez M.D. REASON FOR CONSULTATION: Chest pain and congestive heart failure. HISTORY OF PRESENT ILLNESS: The patient is a 66-year-old gentleman with history of hypertension, congestive heart failure, and COPD, who noted that his blood pressure was elevated in the morning at 148/89. Due to p.r.n. Coreg and clonidine, his blood pressure was dropped to 98/60. The patient then complained of dizziness, but denied loss of consciousness. The patient developed left-sided chest pain that lasted about 5 to 10 minutes. The patient called paramedics, who was initially taken to [facility] emergency room and then was transferred to [facility] for insurance reasons. The patient denies any prior myocardial infarction or coronary artery disease, but he states that he has congestive heart failure and usually under the care of Dr. Adrián Loyola. His last stress test by Dr. Loyola was a year ago. REVIEW OF SYSTEMS: Review of systems was negative other than what was mentioned in the history of present illness. PAST MEDICAL HISTORY: 1. Hypertension. 2. Diabetes. 3. Congestive heart failure. 4. COPD. 5. Hyperlipidemia. 6. Systemic lupus. 7. Chronic kidney disease. MEDICATIONS: Include Zetia 10 mg daily, clonidine p.r.n., Januvia 100 mg daily, Aldactone 25 mg daily, Coreg 12.5 mg b.i.d., Flomax, Levemir, and insulin. ALLERGIES: The patient is allergic to Imuran and Claritin. SOCIAL HISTORY: He is and retired. Does not smoke or drink alcohol. PHYSICAL EXAMINATION: VITAL SIGNS: Show blood pressure of 117/68, pulse 75, respirations 18, and he is afebrile. HEAD AND NECK: Showed no JVD. LUNGS: Clear. CARDIOVASCULAR: Shows regular S1 and S2 with no gallop or murmur. ABDOMEN: Soft and nontender. EXTREMITIES: He has 1+ pitting edema. LABORATORY AND DIAGNOSTIC DATA: His EKG showed normal sinus rhythm and normal electrocardiogram. His echocardiogram showed normal left ventricular systolic function, ejection fraction of 60% with no left ventricular hypertrophy or pericardial effusion. Moderate left atrial enlargement. The patient had moderate mitral regurgitation. His lab showed white count of 10.9, hemoglobin of 8.2, hematocrit of 25.2, and platelet count is 430,000. Sodium 135, potassium 5.0, BUN of 44, creatinine of 5.4, and glucose of 163. His troponins are elevated at 0.235, 0.228, and 0.149. His BNP is 4000. ASSESSMENT AND PLAN: 1. Chest pain and troponin leak. His pain is atypical. His EKG is completely normal. Echocardiogram showed normal left ventricular systolic function. The troponin leak is likely due to renal failure as the patient's creatinine is 5.4. We will treat him medically, at this time with aspirin, Lipitor, Imdur, and Coreg. He was scheduled for Lexiscan Cardiolite stress test as well. 2. History of congestive heart failure. Ejection fraction currently is normal. Continue the patient on Coreg. The patient is on Zaroxolyn 10 mg daily as well as Imdur for diuretic per Dr. Oswald, in view of the patient's advanced renal failure. 3. Renal failure likely due to patient's underlying lupus. 4. Diabetes. 5. Obesity. 6. Hyperlipidemia. 7. Anemia with drop of hemoglobin from 10.2 to 8.2. Repeat CBC and check stool guaiac per Dr. Fontanez. Thank you very much, Dr. Fontanez, for allowing me to participate in the care of this patient. Please do not hesitate to contact me for any questions regarding my evaluation. Francis Swenson M.D. DR: CHATO JOB#: [id number] CC:
[2017-07-26] MEDS: NovoLOG Insulin Flexpen SUBQ SCH ×4 (06:43→21:53)
[2017-07-26 07:25] LABS: BASOPHILS % (AUTO) 0.5 % (0.0-2.0); EOSINOPHILS % (AUTO) 9.1 % (0.0-3.0); HEMATOCRIT 27.3 % (42.0-52.0); HEMOGLOBIN 8.9 G/DL (14.2-18.0); LYMPHOCYTES % (AUTO) 26.8 % (20.0-45.0); MEAN CORPUSCULAR VOLUME 93 FL (80-99); MONOCYTES % (AUTO) 6.2 % (1.0-10.0); NEUTROPHILS % (AUTO) 57.4 % (45.0-75.0); PLATELET COUNT 449 K/UL (150-450); RED BLOOD COUNT 2.92 M/UL (4.70-6.10); RED CELL DISTRIBUTION WIDTH 15.3 % (11.6-14.8); WHITE BLOOD COUNT 10.7 K/UL (4.8-10.8)
[2017-07-26 08:00] VITALS: BP 149/79
[2017-07-26 08:00] LABS: ALANINE AMINOTRANSFERASE 12 U/L (12-78); ALBUMIN 2.8 G/DL (3.4-5.0); ALBUMIN/GLOBULIN RATIO 0.6 (1.0-2.7); ALKALINE PHOSPHATASE 119 U/L (46-116); ANION GAP 11 mmol/L (5-15); ASPARTATE AMINO TRANSFERASE 11 U/L (15-37); BILIRUBIN,TOTAL 0.2 MG/DL (0.2-1.0); BLOOD UREA NITROGEN 43 mg/dL (7-18); CALCIUM 7.9 MG/DL (8.5-10.1); CARBON DIOXIDE 20 MMOL/L (21-32); CHLORIDE 104 MMOL/L (98-107); CREATININE 5.4 MG/DL (0.55-1.30); PHOSPHORUS 5.3 MG/DL (2.5-4.9); POTASSIUM 5.1 MMOL/L (3.5-5.1); SODIUM 135 MMOL/L (136-145)
[2017-07-26] MEDS ORDERED: Lexiscan 0.4mg/5ml syringe IV PRN (08:00)
[2017-07-26] MEDS: Imdur 30mg tab ORAL SCH ×2 (09:39→14:54)
[2017-07-26] MEDS: Allopurinol 100mg Tab ORAL SCH (09:39)
[2017-07-26] MEDS: Tamsulosin 0.4mg cap ORAL SCH ×2 (09:39→18:01)
[2017-07-26] MEDS: Carvedilol 12.5mg tab ORAL SCH ×2 (09:40→21:39)
[2017-07-26] MEDS: Docusate 100mg cap ORAL SCH ×3 (09:41→18:01)
[2017-07-26] MEDS: Heparin 5000 units/ml inj SUBQ SCH ×2 (09:47→21:54)
[2017-07-26] MEDS: Levemir Flexpen SUBQ SCH (09:48)
--- NOTE | 2017-07-26 11:14 | General Progress Note ---
Assessment/Plan Assessment/Plan Assessment - Anemia, likely multifactorial (renal failure, chronic disease) - s/p Colonoscopy +/- EGD x 3 in 2017 - h/o colon polyps - ESRD - SLE / IDDM Recommendations - check stool for OB - monitor CBC - Iron supplementation PRN - Outpatient capsule endoscopy Thank you Racquel Mccurdy M.D. Subjective Allergies: Coded Allergies: AZATHIOPRINE (Verified Adverse Reaction, Intermediate, nausea; vomiting, ) LORATADINE (Verified Adverse Reaction, Mild, nausea, 10/16/16) Objective Last 24 Hour Vital Signs Date Time Temp Pulse Resp B/P (MAP) Pulse Ox O2 Delivery O2 Flow Rate FiO2 07/26/17 09:40 70 149/79 07/26/17 09:39 149/79 07/26/17 04:00 97.7 60 18 128/62 97 Room Air 07/26/17 04:00 77 07/26/17 00:00 98.1 64 18 132/76 94 Room Air 07/26/17 00:00 70 07/25/17 20:53 70 145/81 07/25/17 20:00 97.6 70 18 145/81 Room Air 07/25/17 20:00 80 07/25/17 16:00 66 07/25/17 16:00 97.9 74 18 151/76 100 07/25/17 12:00 97.2 89 20 147/71 98 07/25/17 12:00 72 Intake and Output 07/25/17 07/26/17 19:00 07:00 Intake Total 480 ml Output Total 400 ml Balance 480 ml -400 ml Intake Oral 480 ml Output Urine Total 400 ml # Voids 3 # Bowel Movements 1 1 Laboratory Tests 07/26/17 05:45: White Blood Count 10.7, Red Blood Count 2.92L, Hemoglobin 8.9L, Hematocrit 27.3L , Mean Corpuscular Volume 93, Mean Corpuscular Hemoglobin 30.5, Mean Corpuscular Hemoglobin Concent 32.7, Red Cell Distribution Width 15.3H, Platelet Count 449, Mean Platelet Volume 5.8L, Neutrophils (%) (Auto) 57.4, Lymphocytes (%) (Auto) 26.8, Monocytes (%) (Auto) 6.2, Eosinophils (%) (Auto) 9.1H, Basophils (%) (Auto) 0.5, Sodium Level 135L, Potassium Level 5.1, Chloride Level 104, Carbon Dioxide Level 20L, Anion Gap 11, Blood Urea Nitrogen 43H, Creatinine 5.4H, Estimat Glomerular Filtration Rate 13.0, Glucose Level 160H, Calcium Level 7.9L, Phosphorus Level 5.3H, Magnesium Level 1.7L, Total Bilirubin 0.2, Aspartate Amino Transf (AST/SGOT) 11L, Alanine Aminotransferase ( ALT/SGPT) 12, Alkaline Phosphatase 119H, C-Reactive Protein, Quantitative 3.5H, Pro-B-Type Natriuretic Peptide 2478H, Total Protein 7.7, Albumin 2.8L, Globulin 4.9, Albumin/Globulin Ratio 0.6L Height (Feet): 6 Height (Inches): 1.00 Weight (Pounds): 250 RACQUEL MCCURDY Jul 26, 2017 11:14
[2017-07-26 12:00] VITALS: BP 146/77
--- NOTE | 2017-07-26 12:12 | Internal Med Progress Note ---
Subjective Date of Service: Jul 26, 2017 Physician Name Nieves Almeida Attending Physician Angel Fontanez MD Current Medications Medications (Trade) Dose Ordered Sig/Yefri Route PRN Reason Start Time Stop Time Status Last Admin Dose Admin Allopurinol (Zyloprim) 200 mg DAILY ORAL 07/25/17 11:00 08/24/17 10:59 07/26/17 09:39 Aspirin (ASA) 325 mg DAILY ORAL 07/25/17 09:00 08/24/17 08:59 07/26/17 09:46 Atorvastatin Calcium (Lipitor) 80 mg QHS ORAL 07/24/17 21:00 08/23/17 20:59 07/25/17 20:53 Carvedilol (Coreg) 12.5 mg EVERY 12 HOURS ORAL 07/24/17 09:00 08/23/17 08:59 07/26/17 09:40 Clonidine HCl (Catapres) 0.1 mg Q4H PRN ORAL bp over 170 syst 07/24/17 16:00 08/23/17 15:59 07/24/17 17:11 Dextrose (Dextrose 50%) STAT PRN IV Hypoglycemia 07/24/17 03:30 08/23/17 03:29 Docusate Sodium (Colace) 100 mg THREE TIMES A DAY ORAL 07/24/17 18:00 08/23/17 17:59 07/26/17 09:41 EZETIMIBE (Zetia) 10 mg DAILY ORAL 07/24/17 09:00 08/23/17 08:59 07/26/17 09:39 Gabapentin (Neurontin) 300 mg THREE TIMES A DAY ORAL 07/24/17 09:00 08/23/17 08:59 07/26/17 09:40 Heparin Sodium (Porcine) (Heparin 5000 units/ml) 5,000 units EVERY 12 HOURS SUBQ 07/24/17 09:00 08/23/17 08:59 07/26/17 09:47 Insulin Aspart (NovoLOG) BEFORE MEALS AND HS SUBQ 07/24/17 06:30 08/23/17 06:29 07/26/17 06:43 Insulin Detemir (Levemir) 10 units DAILY SUBQ 07/24/17 09:00 08/23/17 08:59 07/26/17 09:48 Isosorbide Mononitrate (Imdur) 30 mg DAILY ORAL 07/24/17 17:00 08/23/17 16:59 07/26/17 09:39 Metolazone (Zaroxolyn) 10 mg DAILY ORAL 07/24/17 17:00 08/23/17 16:59 07/26/17 09:38 Pantoprazole (Protonix) 40 mg DAILY ORAL 07/24/17 17:00 08/23/17 16:59 07/26/17 09:40 Regadenoson (Lexiscan) 0.4 mg ONCE PRN IV STRESS TEST 07/26/17 08:00 07/26/17 18:00 Sevelamer Carbonate (Renvela) 800 mg THREE TIMES A DAY ORAL 07/25/17 13:00 08/24/17 12:59 07/26/17 09:39 Tamsulosin HCl (Flomax) 0.4 mg BID ORAL 07/24/17 18:00 08/23/17 20:59 07/26/17 09:39 Allergies: Coded Allergies: AZATHIOPRINE (Verified Adverse Reaction, Intermediate, nausea; vomiting, ) LORATADINE (Verified Adverse Reaction, Mild, nausea, 10/16/16) ROS Limited/Unobtainable: No Constitutional: Reports: no symptoms HEENT: Reports: no symptoms Cardiovascular: Reports: no symptoms Respiratory: Reports: no symptoms Gastrointestinal/Abdominal: Reports: no symptoms Genitourinary: Reports: no symptoms Neurologic/Psychiatric: Reports: no symptoms Subjective 66 YO M admitted with chest pain and renal failure. Await cardiolite stress test. Cover for Int Tk-Dr Fontanez. Objective Last Vital Signs Date Time Temp Pulse Resp B/P (MAP) Pulse Ox O2 Delivery O2 Flow Rate FiO2 07/26/17 09:40 70 149/79 07/26/17 04:00 97.7 18 97 Room Air Laboratory Tests Test 07/26/17 05:45 White Blood Count 10.7 K/UL (4.8-10.8) Red Blood Count 2.92 M/UL (4.70-6.10) L Hemoglobin 8.9 G/DL (14.2-18.0) L Hematocrit 27.3 % (42.0-52.0) L Mean Corpuscular Volume 93 FL (80-99) Mean Corpuscular Hemoglobin 30.5 PG (27.0-31.0) Mean Corpuscular Hemoglobin Concent 32.7 G/DL (32.0-36.0) Red Cell Distribution Width 15.3 % (11.6-14.8) H Platelet Count 449 K/UL (150-450) Mean Platelet Volume 5.8 FL (6.5-10.1) L Neutrophils (%) (Auto) 57.4 % (45.0-75.0) Lymphocytes (%) (Auto) 26.8 % (20.0-45.0) Monocytes (%) (Auto) 6.2 % (1.0-10.0) Eosinophils (%) (Auto) 9.1 % (0.0-3.0) H Basophils (%) (Auto) 0.5 % (0.0-2.0) Sodium Level 135 MMOL/L (136-145) L Potassium Level 5.1 MMOL/L (3.5-5.1) Chloride Level 104 MMOL/L (98-107) Carbon Dioxide Level 20 MMOL/L (21-32) L Anion Gap 11 mmol/L (5-15) Blood Urea Nitrogen 43 mg/dL (7-18) H Creatinine 5.4 MG/DL (0.55-1.30) H Estimat Glomerular Filtration Rate 13.0 mL/min (>60) Glucose Level 160 MG/DL (74-106) H Calcium Level 7.9 MG/DL (8.5-10.1) L Phosphorus Level 5.3 MG/DL (2.5-4.9) H Magnesium Level 1.7 MG/DL (1.8-2.4) L Total Bilirubin 0.2 MG/DL (0.2-1.0) Aspartate Amino Transf (AST/SGOT) 11 U/L (15-37) L Alanine Aminotransferase (ALT/SGPT) 12 U/L (12-78) Alkaline Phosphatase 119 U/L (46-116) H C-Reactive Protein, Quantitative 3.5 mg/dL (0.00-0.90) H Pro-B-Type Natriuretic Peptide 2478 pg/mL (0-125) H Total Protein 7.7 G/DL (6.4-8.2) Albumin 2.8 G/DL (3.4-5.0) L Globulin 4.9 g/dL Albumin/Globulin Ratio 0.6 (1.0-2.7) L Intake and Output 07/25/17 07/26/17 19:00 07:00 Intake Total 480 ml Output Total 400 ml Balance 480 ml -400 ml Intake Oral 480 ml Output Urine Total 400 ml # Voids 3 # Bowel Movements 1 1 Objective General Appearance: WD/WN, no apparent distress, alert EENT: PERRL/EOMI, normal ENT inspection Neck: non-tender, normal alignment, supple, normal inspection Cardiovascular: normal peripheral pulses, normal rate, regular rhythm, no gallop/murmur, no JVD Respiratory/Chest: chest wall non-tender, lungs clear, normal breath sounds, no respiratory distress, no accessory muscle use Abdomen: normal bowel sounds, non tender, soft, no organomegaly, no mass Extremities: normal range of motion, non-tender 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 Guaiac all stools. Await GI consult. (4) Coronary artery disease (5) CHF (congestive heart failure) (6) COPD (chronic obstructive pulmonary disease) (7) Diabetes mellitus, type II Assessment & Plan: Continue novlog sliding scale. (8) Hypertension Assessment & Plan: Cont catapres and coreg (9) Hypercholesteremia Assessment & Plan: Continue zetia (10) Chest pain Assessment & Plan: Await nuclear cardiac stress test. See cardiology note. (11) End stage chronic kidney disease Assessment & Plan: Await renal ultrasound. See nephrology note. (12) Lupus (13) Diabetic nephropathy Status: progressing JASENIEVES Jul 26, 2017 12:12
--- NOTE | 2017-07-26 12:40 | Cardiac Electrophysiology PN ---
Assessment/Plan Assessment/Plan 1. Chest pain and troponin leak. Pain is atypical. His EKG is completely normal. Echocardiogram showed normal left ventricular systolic function. The troponin leak is likely due to renal failure as the patient's creatinine is 5.4. We will treat him medically with aspirin, Lipitor , Imdur, and Coreg. Lexiscan Cardiolite stress test pending tomorrow 2. History of congestive heart failure. Ejection fraction currently is normal. Continue the patient on Coreg. The patient is on Zaroxolyn 10 mg daily as well as Imdur for diuretic per Dr. Oswald, in view of the patient's advanced renal failure. 3. Renal failure likely due to patient's underlying lupus. 4. Diabetes. 5. Obesity. 6. Hyperlipidemia. 7. Anemia with drop of hemoglobin from 10.2 to 8.2. Repeat CBC and check stool guaiac per Dr. Fontanez. Subjective Subjective Feeling better. No chest pain or SOB. Objective Last 24 Hour Vital Signs Date Time Temp Pulse Resp B/P (MAP) Pulse Ox O2 Delivery O2 Flow Rate FiO2 07/26/17 09:40 70 149/79 07/26/17 09:39 149/79 07/26/17 04:00 97.7 60 18 128/62 97 Room Air 07/26/17 04:00 77 07/26/17 00:00 98.1 64 18 132/76 94 Room Air 07/26/17 00:00 70 07/25/17 20:53 70 145/81 07/25/17 20:00 97.6 70 18 145/81 Room Air 07/25/17 20:00 80 07/25/17 16:00 66 07/25/17 16:00 97.9 74 18 151/76 100 Intake and Output 07/25/17 07/26/17 19:00 07:00 Intake Total 480 ml Output Total 400 ml Balance 480 ml -400 ml Intake Oral 480 ml Output Urine Total 400 ml # Voids 3 # Bowel Movements 1 1 Laboratory Tests Test 07/26/17 05:45 White Blood Count 10.7 K/UL (4.8-10.8) Red Blood Count 2.92 M/UL (4.70-6.10) L Hemoglobin 8.9 G/DL (14.2-18.0) L Hematocrit 27.3 % (42.0-52.0) L Mean Corpuscular Volume 93 FL (80-99) Mean Corpuscular Hemoglobin 30.5 PG (27.0-31.0) Mean Corpuscular Hemoglobin Concent 32.7 G/DL (32.0-36.0) Red Cell Distribution Width 15.3 % (11.6-14.8) H Platelet Count 449 K/UL (150-450) Mean Platelet Volume 5.8 FL (6.5-10.1) L Neutrophils (%) (Auto) 57.4 % (45.0-75.0) Lymphocytes (%) (Auto) 26.8 % (20.0-45.0) Monocytes (%) (Auto) 6.2 % (1.0-10.0) Eosinophils (%) (Auto) 9.1 % (0.0-3.0) H Basophils (%) (Auto) 0.5 % (0.0-2.0) Sodium Level 135 MMOL/L (136-145) L Potassium Level 5.1 MMOL/L (3.5-5.1) Chloride Level 104 MMOL/L (98-107) Carbon Dioxide Level 20 MMOL/L (21-32) L Anion Gap 11 mmol/L (5-15) Blood Urea Nitrogen 43 mg/dL (7-18) H Creatinine 5.4 MG/DL (0.55-1.30) H Estimat Glomerular Filtration Rate 13.0 mL/min (>60) Glucose Level 160 MG/DL (74-106) H Calcium Level 7.9 MG/DL (8.5-10.1) L Phosphorus Level 5.3 MG/DL (2.5-4.9) H Magnesium Level 1.7 MG/DL (1.8-2.4) L Total Bilirubin 0.2 MG/DL (0.2-1.0) Aspartate Amino Transf (AST/SGOT) 11 U/L (15-37) L Alanine Aminotransferase (ALT/SGPT) 12 U/L (12-78) Alkaline Phosphatase 119 U/L (46-116) H C-Reactive Protein, Quantitative 3.5 mg/dL (0.00-0.90) H Pro-B-Type Natriuretic Peptide 2478 pg/mL (0-125) H Total Protein 7.7 G/DL (6.4-8.2) Albumin 2.8 G/DL (3.4-5.0) L Globulin 4.9 g/dL Albumin/Globulin Ratio 0.6 (1.0-2.7) L Objective HEAD AND NECK: Showed no JVD. LUNGS: Clear. CARDIOVASCULAR: Shows regular S1 and S2 with no gallop or murmur. ABDOMEN: Soft and nontender. EXTREMITIES: He has 1+ pitting edema. WILFREDO HECK Jul 26, 2017 12:40
--- NOTE | 2017-07-26 13:20 | Nephrology Progress Note ---
Assessment/Plan Problem List: (1) End stage chronic kidney disease (2) Lupus (3) Diabetic nephropathy Assessment CKD cr 5.4 stable Lupus COPD DM HTN Obese High Cholestrol BPH Anemia CAD Plan Plan: suggested need for HD- Adamantly refused Adjust bp meds Add nitrate asa beta blockers SQ heparin Anemia mejía Optimize cardiac status monitor troponin I add Phos binders risks of no HD explained- patient aware Subjective ROS Limited/Unobtainable: No Constitutional: Reports: malaise Objective Objective Last 24 Hour Vital Signs Date Time Temp Pulse Resp B/P (MAP) Pulse Ox O2 Delivery O2 Flow Rate FiO2 07/26/17 09:40 70 149/79 07/26/17 09:39 149/79 07/26/17 08:00 97.8 70 20 149/79 97 Room Air 07/26/17 04:00 97.7 60 18 128/62 97 Room Air 07/26/17 04:00 77 07/26/17 00:00 98.1 64 18 132/76 94 Room Air 07/26/17 00:00 70 07/25/17 20:53 70 145/81 07/25/17 20:00 97.6 70 18 145/81 Room Air 07/25/17 20:00 80 07/25/17 16:00 66 07/25/17 16:00 97.9 74 18 151/76 100 Intake and Output 07/25/17 07/26/17 19:00 07:00 Intake Total 480 ml Output Total 400 ml Balance 480 ml -400 ml Intake Oral 480 ml Output Urine Total 400 ml # Voids 3 # Bowel Movements 1 1 Laboratory Tests 07/26/17 05:45: White Blood Count 10.7, Red Blood Count 2.92L, Hemoglobin 8.9L, Hematocrit 27.3L , Mean Corpuscular Volume 93, Mean Corpuscular Hemoglobin 30.5, Mean Corpuscular Hemoglobin Concent 32.7, Red Cell Distribution Width 15.3H, Platelet Count 449, Mean Platelet Volume 5.8L, Neutrophils (%) (Auto) 57.4, Lymphocytes (%) (Auto) 26.8, Monocytes (%) (Auto) 6.2, Eosinophils (%) (Auto) 9.1H, Basophils (%) (Auto) 0.5, Sodium Level 135L, Potassium Level 5.1, Chloride Level 104, Carbon Dioxide Level 20L, Anion Gap 11, Blood Urea Nitrogen 43H, Creatinine 5.4H, Estimat Glomerular Filtration Rate 13.0, Glucose Level 160H, Calcium Level 7.9L, Phosphorus Level 5.3H, Magnesium Level 1.7L, Total Bilirubin 0.2, Aspartate Amino Transf (AST/SGOT) 11L, Alanine Aminotransferase ( ALT/SGPT) 12, Alkaline Phosphatase 119H, C-Reactive Protein, Quantitative 3.5H, Pro-B-Type Natriuretic Peptide 2478H, Total Protein 7.7, Albumin 2.8L, Globulin 4.9, Albumin/Globulin Ratio 0.6L Height (Feet): 6 Height (Inches): 1.00 Weight (Pounds): 250 General Appearance: no apparent distress Cardiovascular: regular rhythm Respiratory/Chest: decreased breath sounds Abdomen: soft Objective no other change AVELINA MARTE Jul 26, 2017 13:20
[2017-07-26 16:00] VITALS: BP 146/86
[2017-07-26 20:00] VITALS: BP 143/86
--- NOTE | 2017-07-26 21:00 | Consultation ---
DATE OF CONSULTATION: 07/26/2017 GASTROENTEROLOGY CONSULTATION CONSULTING PHYSICIAN: Racquel Mccurdy M.D. REFERRING PHYSICIANS: Brian Almeida M.D. and Angel Fontanez M.D. CHIEF COMPLAINT: I was asked to see this patient by Dr. Brian Almeida and Dr. Angel Fontanez for evaluation of anemia. HISTORY OF PRESENT ILLNESS: The patient is a pleasant 66-year-old man, who was admitted due to chest pain and dizziness. He has been seen by Cardiology Services on Wednesday since he had a history of congestive heart failure and COPD. The patient was also found to have significant anemia on admission; therefore, this consultation was generated. The patient states that anemia has been noted for about a year or so and he has apparently had 3 colonoscopies and also likely some endoscopies with colonoscopies. He is not aware of the exact details, but he was told he did have polyps. He said on the first colonoscopy, all the polyps were not removed, but on the second colonoscopy, he had the rest of them removed and it is not clear to me why he had a third colonoscopy. He states that he was advised that a capsule endoscopy may be the next step, but this has not been done. The patient also has renal failure and he is being followed by a partition notcher. However, he is not on dialysis yet. His creatinine is in the 5 range on this admission. He denies any hematochezia or abdominal pain. PAST MEDICAL HISTORY: Congestive heart failure, chronic obstructive pulmonary disease, type 2 diabetes, hypertension, hypercholesterolemia, systemic lupus erythematosus, and renal failure. PAST SURGICAL HISTORY: None. MEDICATIONS AN OUTPATIENT: Include clonidine, Zetia, folic acid, Januvia, spironolactone, Coreg, Neurontin, Flomax, NovoLog and Levemir insulins. ALLERGIES: Claritin and Imuran. FAMILY HISTORY: Positive for multiple family histories of cancers including mother with colon cancer. SOCIAL HISTORY: The patient is . He has 1 daughter. He previously smoked and drank heavily, but he stopped this about 10 years ago. REVIEW OF SYSTEMS: Otherwise negative. PHYSICAL EXAMINATION: GENERAL: A pleasant, man, seen in his room. HEENT: Normocephalic and atraumatic. Sclerae anicteric. Oropharynx is clear. NECK: Supple. CHEST: Clear to auscultation. CARDIOVASCULAR: Revealed regular rate. ABDOMEN: Soft. Good bowel sounds. There is no organomegaly. EXTREMITIES: No edema. LABORATORY DATA: Noted. ASSESSMENT: This patient presents with what appears to be chronic anemia and advanced renal failure. His anemia may indeed be due to chronic disease and renal failure. However, his stools were checked for occult blood. A consideration can be made for capsule endoscopy, but this may be done as an outpatient. Iron supplementation can be given as needed. RECOMMENDATIONS: 1. Obtain outside endoscopy and colonoscopy results. 2. Outpatient capsule endoscopy. 3. Iron supplementation as needed. 4. Check stool for occult blood. Thank you for asking me to participate in the care of this patient. Racquel Mccurdy M.D. DR: ALFONSO JOB#: [id number] CC: JEN
[2017-07-26] MEDS: Atorvastatin 80mg tab ORAL SCH (21:54)
[2017-07-27] VITALS: BP 154/88
[2017-07-27 04:00] VITALS: BP 141/74
[2017-07-27] MEDS: NovoLOG Insulin Flexpen SUBQ SCH ×4 (06:37→22:18)
[2017-07-27 08:00] VITALS: BP 157/78
[2017-07-27 08:38] LABS: BASOPHILS % (AUTO) 0.8 % (0.0-2.0); EOSINOPHILS % (AUTO) 7.6 % (0.0-3.0); HEMATOCRIT 26.3 % (42.0-52.0); HEMOGLOBIN 8.3 G/DL (14.2-18.0); LYMPHOCYTES % (AUTO) 23.8 % (20.0-45.0); MEAN CORPUSCULAR VOLUME 92 FL (80-99); MONOCYTES % (AUTO) 6.4 % (1.0-10.0); NEUTROPHILS % (AUTO) 61.4 % (45.0-75.0); PLATELET COUNT 424 K/UL (150-450); RED BLOOD COUNT 2.85 M/UL (4.70-6.10); RED CELL DISTRIBUTION WIDTH 14.9 % (11.6-14.8); WHITE BLOOD COUNT 10.3 K/UL (4.8-10.8)
[2017-07-27 08:50] LABS: ANION GAP 11 mmol/L (5-15); BLOOD UREA NITROGEN 47 mg/dL (7-18); CALCIUM 8.3 MG/DL (8.5-10.1); CARBON DIOXIDE 18 MMOL/L (21-32); CHLORIDE 107 MMOL/L (98-107); CREATININE 5.3 MG/DL (0.55-1.30); POTASSIUM 5.5 MMOL/L (3.5-5.1); SODIUM 136 MMOL/L (136-145)
[2017-07-27] MEDS: Docusate 100mg cap ORAL SCH ×3 (09:00→17:13)
[2017-07-27] MEDS: Imdur 30mg tab ORAL SCH (10:32)
[2017-07-27] MEDS: Tamsulosin 0.4mg cap ORAL SCH ×2 (10:33→17:13)
[2017-07-27] MEDS: Carvedilol 12.5mg tab ORAL SCH ×2 (10:34→22:16)
[2017-07-27] MEDS: Levemir Flexpen SUBQ SCH (10:49)
[2017-07-27] MEDS: Heparin 5000 units/ml inj SUBQ SCH ×2 (10:50→22:17)
[2017-07-27 12:00] VITALS: BP 151/79
--- NOTE | 2017-07-27 12:00 | Cardiac Electrophysiology PN ---
Assessment/Plan Assessment/Plan 1. Chest pain and troponin leak. Pain is atypical. His EKG is completely normal. Echocardiogram showed normal left ventricular systolic function. The troponin leak is likely due to renal failure as the patient's creatinine is 5.4. We will treat him medically with aspirin, Lipitor , Imdur, and Coreg. Lexiscan Cardiolite stress test will be rescheduled for tomorrow as he refused it today as he had some questions regarding the nuclear agent. 2. History of congestive heart failure. Ejection fraction currently is normal. Continue on Coreg, Zaroxolyn 10 mg daily as well as Imdur 3. Renal failure likely due to patient's underlying lupus. 4. Diabetes. 5. Obesity. 6. Hyperlipidemia. 7. Anemia with drop of hemoglobin from 10.2 to 8.2. Stable Hb 8.3 Subjective Subjective Refused stress test today.No chest pain or SOB. Objective Last 24 Hour Vital Signs Date Time Temp Pulse Resp B/P (MAP) Pulse Ox O2 Delivery O2 Flow Rate FiO2 07/27/17 10:34 79 157/78 07/27/17 10:32 157/78 07/27/17 08:00 97.1 79 20 157/78 98 Room Air 07/27/17 04:00 97.7 80 20 141/74 94 Room Air 07/27/17 04:00 Room Air 07/27/17 04:00 83 07/27/17 00:00 97.9 82 20 154/88 98 Room Air 07/27/17 00:00 80 07/26/17 21:39 71 143/86 07/26/17 20:00 Room Air 07/26/17 20:00 71 07/26/17 20:00 98.1 71 18 143/86 95 Room Air 07/26/17 16:00 80 07/26/17 16:00 97.5 65 20 146/86 98 Room Air 07/26/17 14:54 141/71 07/26/17 12:00 98.0 72 20 146/77 96 Room Air 07/26/17 12:00 70 Intake and Output 07/26/17 07/27/17 19:00 07:00 Intake Total 240 ml Balance 240 ml Intake Oral 240 ml # Voids 6 # Bowel Movements 1 2 Laboratory Tests Test 07/26/17 22:11 07/27/17 08:00 Stool Occult Blood Negative (NEGATIVE) White Blood Count 10.3 K/UL (4.8-10.8) Red Blood Count 2.85 M/UL (4.70-6.10) L Hemoglobin 8.3 G/DL (14.2-18.0) L Hematocrit 26.3 % (42.0-52.0) L Mean Corpuscular Volume 92 FL (80-99) Mean Corpuscular Hemoglobin 29.2 PG (27.0-31.0) Mean Corpuscular Hemoglobin Concent 31.6 G/DL (32.0-36.0) L Red Cell Distribution Width 14.9 % (11.6-14.8) H Platelet Count 424 K/UL (150-450) Mean Platelet Volume 5.9 FL (6.5-10.1) L Neutrophils (%) (Auto) 61.4 % (45.0-75.0) Lymphocytes (%) (Auto) 23.8 % (20.0-45.0) Monocytes (%) (Auto) 6.4 % (1.0-10.0) Eosinophils (%) (Auto) 7.6 % (0.0-3.0) H Basophils (%) (Auto) 0.8 % (0.0-2.0) Sodium Level 136 MMOL/L (136-145) Potassium Level 5.5 MMOL/L (3.5-5.1) H Chloride Level 107 MMOL/L (98-107) Carbon Dioxide Level 18 MMOL/L (21-32) L Anion Gap 11 mmol/L (5-15) Blood Urea Nitrogen 47 mg/dL (7-18) H Creatinine 5.3 MG/DL (0.55-1.30) H Estimat Glomerular Filtration Rate 13.3 mL/min (>60) Glucose Level 148 MG/DL (74-106) H Calcium Level 8.3 MG/DL (8.5-10.1) L Objective HEAD AND NECK: Showed no JVD. LUNGS: Clear. CARDIOVASCULAR: Shows regular S1 and S2 with no gallop or murmur. ABDOMEN: Soft and nontender. EXTREMITIES: He has 1+ pitting edema. WILFREDO HECK Jul 27, 2017 12:00
[2017-07-27] MEDS ORDERED: Sodium Polystyrene Sulfonate 15gm Powder ORAL ONE (15:15)
--- NOTE | 2017-07-27 15:15 | Nephrology Progress Note ---
Assessment/Plan Problem List: (1) End stage chronic kidney disease (2) Lupus (3) Diabetic nephropathy Assessment CKD cr 5.4 stable Lupus COPD DM HTN Obese High Cholestrol BPH Anemia CAD Plan Plan: kayexelate po suggested need for HD- Adamantly refused Adjust bp meds Add nitrate asa beta blockers SQ heparin Anemia mejía Optimize cardiac status monitor troponin I add Phos binders risks of no HD explained- patient aware Subjective ROS Limited/Unobtainable: No Constitutional: Reports: malaise Objective Objective Last 24 Hour Vital Signs Date Time Temp Pulse Resp B/P (MAP) Pulse Ox O2 Delivery O2 Flow Rate FiO2 07/27/17 12:00 70 07/27/17 12:00 97.2 63 21 151/79 99 Room Air 07/27/17 10:34 79 157/78 07/27/17 10:32 157/78 07/27/17 08:00 97.1 79 20 157/78 98 Room Air 07/27/17 04:00 97.7 80 20 141/74 94 Room Air 07/27/17 04:00 Room Air 07/27/17 04:00 83 07/27/17 00:00 97.9 82 20 154/88 98 Room Air 07/27/17 00:00 80 07/26/17 21:39 71 143/86 07/26/17 20:00 Room Air 07/26/17 20:00 71 07/26/17 20:00 98.1 71 18 143/86 95 Room Air 07/26/17 16:00 80 07/26/17 16:00 97.5 65 20 146/86 98 Room Air Intake and Output 07/26/17 07/27/17 19:00 07:00 Intake Total 240 ml Balance 240 ml Intake Oral 240 ml # Voids 6 # Bowel Movements 1 2 Laboratory Tests 07/26/17 22:11: Stool Occult Blood Negative 07/27/17 08:00: White Blood Count 10.3, Red Blood Count 2.85L, Hemoglobin 8.3L, Hematocrit 26.3L , Mean Corpuscular Volume 92, Mean Corpuscular Hemoglobin 29.2, Mean Corpuscular Hemoglobin Concent 31.6L, Red Cell Distribution Width 14.9H, Platelet Count 424, Mean Platelet Volume 5.9L, Neutrophils (%) (Auto) 61.4, Lymphocytes (%) (Auto) 23.8, Monocytes (%) (Auto) 6.4, Eosinophils (%) (Auto) 7.6H, Basophils (%) (Auto) 0.8, Sodium Level 136, Potassium Level 5.5H, Chloride Level 107, Carbon Dioxide Level 18L, Anion Gap 11, Blood Urea Nitrogen 47H, Creatinine 5.3H, Estimat Glomerular Filtration Rate 13.3, Glucose Level 148H, Calcium Level 8.3L, Phosphorus Level [Pending], Magnesium Level [Pending] Height (Feet): 6 Height (Inches): 1.00 Weight (Pounds): 254 General Appearance: no apparent distress Cardiovascular: normal rate Respiratory/Chest: decreased breath sounds Abdomen: other - obese Objective no other change AVELINA MARTE Jul 27, 2017 15:15
[2017-07-27 15:27] LABS: PHOSPHORUS 5.1 MG/DL (2.5-4.9)
[2017-07-27] MEDS ORDERED: Lexiscan 0.4mg/5ml syringe IV PRN (15:30)
--- NOTE | 2017-07-27 15:41 | Consultation ---
History of Present Illness General Date patient seen: Jul 27, 2017 Referring physician: Dr. Fontanez Reason for Consultation: inpatient management.copd Present Illness HPI 66 year old male with hx of CHF, COPd advanced renal disease, taken by paramedics to [facility] with CC of dizziness. Pt was found to have end stage renal disease and was offered Hd, but he adamantly refused. Pt is having a stress test in am to rule reversible ischemic heart disease. Currently pt is asymptomatic. Allergies: Coded Allergies: AZATHIOPRINE (Verified Adverse Reaction, Intermediate, nausea; vomiting, ) LORATADINE (Verified Adverse Reaction, Mild, nausea, 10/16/16) Medication History Scheduled Albuterol Sulfate* (Proair Hfa*), 2 PUFFS INH Q6H, (Reported) Albuterol Sulfate* (Albuterol Sulfate Hhn*), 3 ML INH THREE TIMES A DAY, ( Reported) Folic Acid* (Folic Acid*), 1 MG ORAL DAILY, (Reported) Insulin Aspart* (Novolog*), 15 SUBQ AC, (Reported) Insulin Detemir (Levemir Flexpen), 35 SUBQ BIDAC, (Reported) Prednisone* (Prednisone*), 10 MG ORAL DAILY, (Reported) Tamsulosin Hcl (Tamsulosin Hcl*), 0.4 MG ORAL BEDTIME, (Reported) Umeclidinium Brm/Vilanterol Tr (Anoro Ellipta 62.5-25 Mcg INH), INH DAILY, ( Reported) [Gabapentin], 1 TAB PO TID, (Reported) [[place]], 1 TAB PO BID, (Reported) Scheduled PRN Diphenhydramine Hcl* (Benadryl*), 50 MG ORAL HS PRN for Itching, (Reported) Patient History Healthcare decision maker N Resuscitation status Full Code Advanced Directive on File Past Medical/Surgical History Past Medical/Surgical History: (1) End stage chronic kidney disease (2) Lupus (3) Diabetic nephropathy (4) COPD (chronic obstructive pulmonary disease) (5) Hyperkalemia Review of Systems Constitutional: Reports: malaise, weakness Eye: Reports: no symptoms ENT: Reports: no symptoms Respiratory: Reports: no symptoms Cardiovascular: Reports: no symptoms Musculoskeletal: Reports: no symptoms Skin: Reports: no symptoms Neurological: Reports: no symptoms Physical Exam General Appearance: overweight Lines, tubes and drains: peripheral HEENT: normocephalic, atraumatic Neck: non-tender, normal alignment Respiratory/Chest: chest wall non-tender, normal breath sounds Breasts: no masses Cardiovascular/Chest: normal peripheral pulses Abdomen: normal bowel sounds, soft Genitourinary/Rectal: normal genital exam Last 24 Hour Vital Signs Date Time Temp Pulse Resp B/P (MAP) Pulse Ox O2 Delivery O2 Flow Rate FiO2 07/27/17 12:00 70 07/27/17 12:00 97.2 63 21 151/79 99 Room Air 07/27/17 10:34 79 157/78 07/27/17 10:32 157/78 07/27/17 08:00 97.1 79 20 157/78 98 Room Air 07/27/17 04:00 97.7 80 20 141/74 94 Room Air 07/27/17 04:00 Room Air 07/27/17 04:00 83 07/27/17 00:00 97.9 82 20 154/88 98 Room Air 07/27/17 00:00 80 07/26/17 21:39 71 143/86 07/26/17 20:00 Room Air 07/26/17 20:00 71 07/26/17 20:00 98.1 71 18 143/86 95 Room Air 07/26/17 16:00 80 07/26/17 16:00 97.5 65 20 146/86 98 Room Air Intake and Output 07/26/17 07/27/17 19:00 07:00 Intake Total 240 ml Balance 240 ml Intake Oral 240 ml # Voids 6 # Bowel Movements 1 2 Laboratory Tests Test 07/26/17 22:11 07/27/17 08:00 Stool Occult Blood Negative (NEGATIVE) White Blood Count 10.3 K/UL (4.8-10.8) Red Blood Count 2.85 M/UL (4.70-6.10) L Hemoglobin 8.3 G/DL (14.2-18.0) L Hematocrit 26.3 % (42.0-52.0) L Mean Corpuscular Volume 92 FL (80-99) Mean Corpuscular Hemoglobin 29.2 PG (27.0-31.0) Mean Corpuscular Hemoglobin Concent 31.6 G/DL (32.0-36.0) L Red Cell Distribution Width 14.9 % (11.6-14.8) H Platelet Count 424 K/UL (150-450) Mean Platelet Volume 5.9 FL (6.5-10.1) L Neutrophils (%) (Auto) 61.4 % (45.0-75.0) Lymphocytes (%) (Auto) 23.8 % (20.0-45.0) Monocytes (%) (Auto) 6.4 % (1.0-10.0) Eosinophils (%) (Auto) 7.6 % (0.0-3.0) H Basophils (%) (Auto) 0.8 % (0.0-2.0) Sodium Level 136 MMOL/L (136-145) Potassium Level 5.5 MMOL/L (3.5-5.1) H Chloride Level 107 MMOL/L (98-107) Carbon Dioxide Level 18 MMOL/L (21-32) L Anion Gap 11 mmol/L (5-15) Blood Urea Nitrogen 47 mg/dL (7-18) H Creatinine 5.3 MG/DL (0.55-1.30) H Estimat Glomerular Filtration Rate 13.3 mL/min (>60) Glucose Level 148 MG/DL (74-106) H Calcium Level 8.3 MG/DL (8.5-10.1) L Phosphorus Level 5.1 MG/DL (2.5-4.9) H Magnesium Level 1.7 MG/DL (1.8-2.4) L Troponin I Pending Height (Feet): 6 Height (Inches): 1.00 Weight (Pounds): 254 Medications Current Medications Medications (Trade) Dose Ordered Sig/Yefri Route PRN Reason Start Time Stop Time Status Last Admin Dose Admin Allopurinol (Allopurinol) 300 mg DAILY ORAL 07/27/17 09:00 08/26/17 08:59 07/27/17 10:33 Aspirin (ASA) 325 mg DAILY ORAL 07/25/17 09:00 08/24/17 08:59 07/27/17 10:33 Atorvastatin Calcium (Lipitor) 80 mg QHS ORAL 07/24/17 21:00 08/23/17 20:59 07/26/17 21:54 Carvedilol (Coreg) 12.5 mg EVERY 12 HOURS ORAL 07/24/17 09:00 08/23/17 08:59 07/27/17 10:34 Clonidine HCl (Catapres) 0.1 mg Q4H PRN ORAL bp over 170 syst 07/24/17 16:00 08/23/17 15:59 07/24/17 17:11 Dextrose (Dextrose 50%) STAT PRN IV Hypoglycemia 07/24/17 03:30 08/23/17 03:29 Docusate Sodium (Colace) 100 mg THREE TIMES A DAY ORAL 07/24/17 18:00 08/23/17 17:59 07/27/17 09:00 EZETIMIBE (Zetia) 10 mg DAILY ORAL 07/24/17 09:00 08/23/17 08:59 07/27/17 10:32 Gabapentin (Neurontin) 300 mg THREE TIMES A DAY ORAL 07/24/17 09:00 08/23/17 08:59 07/27/17 12:20 Heparin Sodium (Porcine) (Heparin 5000 units/ml) 5,000 units EVERY 12 HOURS SUBQ 07/24/17 09:00 08/23/17 08:59 07/27/17 10:50 Insulin Aspart (NovoLOG) BEFORE MEALS AND HS SUBQ 07/24/17 06:30 08/23/17 06:29 07/27/17 10:48 Insulin Detemir (Levemir) 10 units DAILY SUBQ 07/24/17 09:00 08/23/17 08:59 07/27/17 10:49 Isosorbide Mononitrate (Imdur) 60 mg DAILY ORAL 07/26/17 14:00 08/25/17 13:59 07/27/17 10:32 Metolazone (Zaroxolyn) 10 mg DAILY ORAL 07/24/17 17:00 08/23/17 16:59 07/27/17 10:33 Pantoprazole (Protonix) 40 mg DAILY ORAL 07/24/17 17:00 08/23/17 16:59 07/27/17 10:33 Regadenoson (Lexiscan) 0.4 mg ONCE PRN IV STRESS TEST 07/27/17 15:30 07/28/17 23:59 Sevelamer Carbonate (Renvela) 800 mg THREE TIMES A DAY ORAL 07/25/17 13:00 08/24/17 12:59 07/27/17 12:20 Tamsulosin HCl (Flomax) 0.4 mg BID ORAL 07/24/17 18:00 08/23/17 20:59 07/27/17 10:33 Assessment/Plan Problem List: (1) COPD (chronic obstructive pulmonary disease) ICD Codes: J44.9 - Chronic obstructive pulmonary disease, unspecified SNOMED: 69161300 (2) Near syncope ICD Codes: R55 - Syncope and collapse SNOMED: 170320055 (3) End stage chronic kidney disease ICD Codes: N18.6 - End stage renal disease SNOMED: 12533513, 283834204 (4) Lupus ICD Codes: L93.0 - Discoid lupus erythematosus SNOMED: 141091419 (5) Diabetic nephropathy ICD Codes: E11.21 - Type 2 diabetes mellitus with diabetic nephropathy SNOMED: 53535055, 534475763 (6) Coronary artery disease ICD Codes: I25.10 - Atherosclerotic heart disease of [place] coronary artery without angina pectoris SNOMED: 10621822 (7) Hypertension ICD Codes: I10 - Essential (primary) hypertension SNOMED: 58227252 (8) Non-compliance ICD Codes: Z91.19 - Patient's noncompliance with other medical treatment and regimen SNOMED: 9637328 Assessment/Plan repeat cxr respiratory treatment symptomatic treatment sliding scale MARY GREEN Jul 27, 2017 15:41
[2017-07-27 16:00] VITALS: BP 137/78
--- NOTE | 2017-07-27 17:00 | Internal Med Progress Note ---
Subjective Date of Service: Jul 27, 2017 Physician Name Brian Laguna Attending Physician Angel Fontanez MD Current Medications Medications (Trade) Dose Ordered Sig/Yefri Route PRN Reason Start Time Stop Time Status Last Admin Dose Admin Allopurinol (Allopurinol) 300 mg DAILY ORAL 07/27/17 09:00 08/26/17 08:59 07/27/17 10:33 Aspirin (ASA) 325 mg DAILY ORAL 07/25/17 09:00 08/24/17 08:59 07/27/17 10:33 Atorvastatin Calcium (Lipitor) 80 mg QHS ORAL 07/24/17 21:00 08/23/17 20:59 07/26/17 21:54 Carvedilol (Coreg) 12.5 mg EVERY 12 HOURS ORAL 07/24/17 09:00 08/23/17 08:59 07/27/17 10:34 Clonidine HCl (Catapres) 0.1 mg Q4H PRN ORAL bp over 170 syst 07/24/17 16:00 08/23/17 15:59 07/24/17 17:11 Dextrose (Dextrose 50%) STAT PRN IV Hypoglycemia 07/24/17 03:30 08/23/17 03:29 Docusate Sodium (Colace) 100 mg THREE TIMES A DAY ORAL 07/24/17 18:00 08/23/17 17:59 07/27/17 09:00 EZETIMIBE (Zetia) 10 mg DAILY ORAL 07/24/17 09:00 08/23/17 08:59 07/27/17 10:32 Gabapentin (Neurontin) 300 mg THREE TIMES A DAY ORAL 07/24/17 09:00 08/23/17 08:59 07/27/17 12:20 Heparin Sodium (Porcine) (Heparin 5000 units/ml) 5,000 units EVERY 12 HOURS SUBQ 07/24/17 09:00 08/23/17 08:59 07/27/17 10:50 Insulin Aspart (NovoLOG) BEFORE MEALS AND HS SUBQ 07/24/17 06:30 08/23/17 06:29 07/27/17 15:59 Insulin Detemir (Levemir) 10 units DAILY SUBQ 07/24/17 09:00 08/23/17 08:59 07/27/17 10:49 Isosorbide Mononitrate (Imdur) 60 mg DAILY ORAL 07/26/17 14:00 08/25/17 13:59 07/27/17 10:32 Metolazone (Zaroxolyn) 10 mg DAILY ORAL 07/24/17 17:00 08/23/17 16:59 07/27/17 10:33 Pantoprazole (Protonix) 40 mg DAILY ORAL 07/24/17 17:00 08/23/17 16:59 07/27/17 10:33 Regadenoson (Lexiscan) 0.4 mg ONCE PRN IV STRESS TEST 07/27/17 15:30 07/28/17 23:59 Sevelamer Carbonate (Renvela) 800 mg THREE TIMES A DAY ORAL 07/25/17 13:00 08/24/17 12:59 07/27/17 12:20 Tamsulosin HCl (Flomax) 0.4 mg BID ORAL 07/24/17 18:00 08/23/17 20:59 07/27/17 10:33 Allergies: Coded Allergies: AZATHIOPRINE (Verified Adverse Reaction, Intermediate, nausea; vomiting, ) LORATADINE (Verified Adverse Reaction, Mild, nausea, 10/16/16) ROS Limited/Unobtainable: No Constitutional: Reports: no symptoms HEENT: Reports: no symptoms Cardiovascular: Reports: no symptoms Respiratory: Reports: no symptoms Gastrointestinal/Abdominal: Reports: no symptoms Genitourinary: Reports: no symptoms Neurologic/Psychiatric: Reports: no symptoms Subjective 66 YO M admitted with chest pain and renal failure. Await Nuclear cardiolite stress test. Cover for Int Med-Dr Fontanez. Objective Last Vital Signs Date Time Temp Pulse Resp B/P (MAP) Pulse Ox O2 Delivery O2 Flow Rate FiO2 07/27/17 16:00 97.0 70 22 137/78 96 Room Air Laboratory Tests Test 07/26/17 22:11 07/27/17 08:00 Stool Occult Blood Negative (NEGATIVE) White Blood Count 10.3 K/UL (4.8-10.8) Red Blood Count 2.85 M/UL (4.70-6.10) L Hemoglobin 8.3 G/DL (14.2-18.0) L Hematocrit 26.3 % (42.0-52.0) L Mean Corpuscular Volume 92 FL (80-99) Mean Corpuscular Hemoglobin 29.2 PG (27.0-31.0) Mean Corpuscular Hemoglobin Concent 31.6 G/DL (32.0-36.0) L Red Cell Distribution Width 14.9 % (11.6-14.8) H Platelet Count 424 K/UL (150-450) Mean Platelet Volume 5.9 FL (6.5-10.1) L Neutrophils (%) (Auto) 61.4 % (45.0-75.0) Lymphocytes (%) (Auto) 23.8 % (20.0-45.0) Monocytes (%) (Auto) 6.4 % (1.0-10.0) Eosinophils (%) (Auto) 7.6 % (0.0-3.0) H Basophils (%) (Auto) 0.8 % (0.0-2.0) Sodium Level 136 MMOL/L (136-145) Potassium Level 5.5 MMOL/L (3.5-5.1) H Chloride Level 107 MMOL/L (98-107) Carbon Dioxide Level 18 MMOL/L (21-32) L Anion Gap 11 mmol/L (5-15) Blood Urea Nitrogen 47 mg/dL (7-18) H Creatinine 5.3 MG/DL (0.55-1.30) H Estimat Glomerular Filtration Rate 13.3 mL/min (>60) Glucose Level 148 MG/DL (74-106) H Calcium Level 8.3 MG/DL (8.5-10.1) L Phosphorus Level 5.1 MG/DL (2.5-4.9) H Magnesium Level 1.7 MG/DL (1.8-2.4) L Troponin I 0.182 ng/mL (0.000-0.056) Intake and Output 07/26/17 07/27/17 19:00 07:00 Intake Total 240 ml Balance 240 ml Intake Oral 240 ml # Voids 6 # Bowel Movements 1 2 Objective General Appearance: WD/WN, no apparent distress, alert EENT: PERRL/EOMI, normal ENT inspection Neck: non-tender, normal alignment, supple, normal inspection Cardiovascular: normal peripheral pulses, normal rate, regular rhythm, no gallop/murmur, no JVD Respiratory/Chest: chest wall non-tender, lungs clear, normal breath sounds, no respiratory distress, no accessory muscle use Abdomen: normal bowel sounds, non tender, soft, no organomegaly, no mass Extremities: normal range of motion, non-tender Neurologic: chart snatcher II-XII grossly normal, no motor/sensory deficits Skin: normal pigmentation, warm/dry Assessment/Plan Problem List: (1) Near syncope (2) Hyperkalemia (3) Anemia, iron deficiency Assessment & Plan: Cont IV venofer. Guaiac all stools. See GI consult. (4) Coronary artery disease (5) CHF (congestive heart failure) (6) COPD (chronic obstructive pulmonary disease) (7) Diabetes mellitus, type II Assessment & Plan: Continue novlog sliding scale. (8) Hypertension Assessment & Plan: Cont catapres and coreg (9) Hypercholesteremia Assessment & Plan: Continue zetia (10) Chest pain Assessment & Plan: Await nuclear cardiac stress test. See cardiology note. (11) End stage chronic kidney disease Assessment & Plan: Await renal ultrasound. See nephrology note. (12) Lupus (13) Diabetic nephropathy Status: not improved BRIAN LAGUNA Jul 27, 2017 17:00
[2017-07-27 20:00] VITALS: BP 151/78
[2017-07-27] MEDS: Atorvastatin 80mg tab ORAL SCH (22:16)
--- NOTE | 2017-07-27 22:17 | General Progress Note ---
Assessment/Plan Assessment/Plan Assessment - Anemia, likely multifactorial (renal failure, chronic disease) - s/p Colonoscopy +/- EGD x 3 in 2017 - h/o colon polyps - ESRD - SLE / IDDM Recommendations - check stool for OB - monitor CBC - Iron supplementation PRN - Outpatient capsule endoscopy Subjective Allergies: Coded Allergies: AZATHIOPRINE (Verified Adverse Reaction, Intermediate, nausea; vomiting, ) LORATADINE (Verified Adverse Reaction, Mild, nausea, 10/16/16) Subjective Feels OK no abdominal pain tolerating PO Objective Last 24 Hour Vital Signs Date Time Temp Pulse Resp B/P (MAP) Pulse Ox O2 Delivery O2 Flow Rate FiO2 07/27/17 20:00 73 07/27/17 20:00 97.9 75 18 151/78 93 Room Air 07/27/17 16:00 74 07/27/17 16:00 97.0 70 22 137/78 96 Room Air 07/27/17 12:00 70 07/27/17 12:00 97.2 63 21 151/79 99 Room Air 07/27/17 10:34 79 157/78 07/27/17 10:32 157/78 07/27/17 08:00 97.1 79 20 157/78 98 Room Air 07/27/17 04:00 97.7 80 20 141/74 94 Room Air 07/27/17 04:00 Room Air 07/27/17 04:00 83 07/27/17 00:00 97.9 82 20 154/88 98 Room Air 07/27/17 00:00 80 Intake and Output 07/26/17 07/27/17 19:00 07:00 Intake Total 240 ml Balance 240 ml Intake Oral 240 ml # Voids 6 # Bowel Movements 1 2 Laboratory Tests 07/27/17 08:00: White Blood Count 10.3, Red Blood Count 2.85L, Hemoglobin 8.3L, Hematocrit 26.3L , Mean Corpuscular Volume 92, Mean Corpuscular Hemoglobin 29.2, Mean Corpuscular Hemoglobin Concent 31.6L, Red Cell Distribution Width 14.9H, Platelet Count 424, Mean Platelet Volume 5.9L, Neutrophils (%) (Auto) 61.4, Lymphocytes (%) (Auto) 23.8, Monocytes (%) (Auto) 6.4, Eosinophils (%) (Auto) 7.6H, Basophils (%) (Auto) 0.8, Sodium Level 136, Potassium Level 5.5H, Chloride Level 107, Carbon Dioxide Level 18L, Anion Gap 11, Blood Urea Nitrogen 47H, Creatinine 5.3H, Estimat Glomerular Filtration Rate 13.3, Glucose Level 148H, Calcium Level 8.3L, Phosphorus Level 5.1H, Magnesium Level 1.7L, Troponin I 0.182H Height (Feet): 6 Height (Inches): 1.00 Weight (Pounds): 254 Objective WDWN AA man NCAT supple CTA RRR Soft ND NT no edema ARASELI SORTO Jul 27, 2017 22:17
[2017-07-28] VITALS: BP 151/86
[2017-07-28 04:00] VITALS: BP 156/89
[2017-07-28 06:19] LABS: HEMATOCRIT 24.5 % (42.0-52.0); HEMOGLOBIN 7.9 G/DL (14.2-18.0); MEAN CORPUSCULAR VOLUME 93 FL (80-99); PLATELET COUNT 380 K/UL (150-450); RED BLOOD COUNT 2.63 M/UL (4.70-6.10); RED CELL DISTRIBUTION WIDTH 15.1 % (11.6-14.8); WHITE BLOOD COUNT 11.4 K/UL (4.8-10.8)
[2017-07-28 06:32] LABS: ALANINE AMINOTRANSFERASE 11 U/L (12-78); ALBUMIN 2.7 G/DL (3.4-5.0); ALBUMIN/GLOBULIN RATIO 0.6 (1.0-2.7); ALKALINE PHOSPHATASE 106 U/L (46-116); ANION GAP 12 mmol/L (5-15); ASPARTATE AMINO TRANSFERASE 11 U/L (15-37); BILIRUBIN,TOTAL 0.2 MG/DL (0.2-1.0); BLOOD UREA NITROGEN 43 mg/dL (7-18); CALCIUM 8.1 MG/DL (8.5-10.1); CARBON DIOXIDE 20 MMOL/L (21-32); CHLORIDE 106 MMOL/L (98-107); CREATININE 5.3 MG/DL (0.55-1.30); PHOSPHORUS 5.4 MG/DL (2.5-4.9); POTASSIUM 5.1 MMOL/L (3.5-5.1); SODIUM 138 MMOL/L (136-145)
[2017-07-28] MEDS: NovoLOG Insulin Flexpen SUBQ SCH ×4 (06:42→21:34)
[2017-07-28 06:54] LABS: INR 0.9 (0.9-1.1)
[2017-07-28 07:34] LABS: LACTATE DEHYDROGENASE 151 U/L (81-234)
[2017-07-28 07:40] LABS: % IRON SATURATION 41 % (15-50); IRON 65 ug/dL (50-175); TOTAL IRON BINDING CAPACITY 158 ug/dL (250-450)
[2017-07-28 08:00] VITALS: BP 148/73
--- NOTE | 2017-07-28 08:39 | Diagnostic Imaging Report ---
Indication: Acute renal failure Technique: Grayscale and duplex images of the kidneys, retroperitoneum, and bladder were obtained. Comparison: Findings: Right kidney measures 11.1 cm in length. Left kidney measures 13.2 cm in length. Both kidneys demonstrate normal echogenicity. No hydronephrosis. Right kidney demonstrates an 18 mm cyst. Normal inferior vena cava. Bladder is normal. Impression: Negative for hydronephrosis. Incidental finding right renal cyst
[2017-07-28] MEDS: Tamsulosin 0.4mg cap ORAL SCH ×2 (09:38→17:56)
[2017-07-28] MEDS: Carvedilol 12.5mg tab ORAL SCH ×2 (09:39→21:33)
[2017-07-28] MEDS: Docusate 100mg cap ORAL SCH ×3 (09:40→17:55)
[2017-07-28] MEDS: Imdur 30mg tab ORAL SCH (09:40)
[2017-07-28] MEDS: Levemir Flexpen SUBQ SCH (09:43)
[2017-07-28] MEDS: Heparin 5000 units/ml inj SUBQ SCH ×2 (09:43→21:32)
--- NOTE | 2017-07-28 11:12 | Internal Med Progress Note ---
Subjective Date of Service: Jul 28, 2017 Physician Name Brian Laguna Attending Physician Angel Fontanez MD Current Medications Medications (Trade) Dose Ordered Sig/Yefri Route PRN Reason Start Time Stop Time Status Last Admin Dose Admin Allopurinol (Allopurinol) 300 mg DAILY ORAL 07/27/17 09:00 08/26/17 08:59 07/28/17 09:40 Aspirin (ASA) 325 mg DAILY ORAL 07/25/17 09:00 08/24/17 08:59 07/28/17 09:39 Atorvastatin Calcium (Lipitor) 80 mg QHS ORAL 07/24/17 21:00 08/23/17 20:59 07/27/17 22:16 Carvedilol (Coreg) 12.5 mg EVERY 12 HOURS ORAL 07/24/17 09:00 08/23/17 08:59 07/28/17 09:39 Clonidine HCl (Catapres) 0.1 mg Q4H PRN ORAL bp over 170 syst 07/24/17 16:00 08/23/17 15:59 07/24/17 17:11 Dextrose (Dextrose 50%) STAT PRN IV Hypoglycemia 07/24/17 03:30 08/23/17 03:29 Docusate Sodium (Colace) 100 mg THREE TIMES A DAY ORAL 07/24/17 18:00 08/23/17 17:59 07/28/17 09:40 EZETIMIBE (Zetia) 10 mg DAILY ORAL 07/24/17 09:00 08/23/17 08:59 07/28/17 09:38 Gabapentin (Neurontin) 300 mg THREE TIMES A DAY ORAL 07/24/17 09:00 08/23/17 08:59 07/28/17 09:41 Heparin Sodium (Porcine) (Heparin 5000 units/ml) 5,000 units EVERY 12 HOURS SUBQ 07/24/17 09:00 08/23/17 08:59 07/28/17 09:43 Insulin Aspart (NovoLOG) BEFORE MEALS AND HS SUBQ 07/24/17 06:30 08/23/17 06:29 07/28/17 06:42 Insulin Detemir (Levemir) 10 units DAILY SUBQ 07/24/17 09:00 08/23/17 08:59 07/28/17 09:43 Isosorbide Mononitrate (Imdur) 60 mg DAILY ORAL 07/26/17 14:00 08/25/17 13:59 07/28/17 09:40 Metolazone (Zaroxolyn) 10 mg DAILY ORAL 07/24/17 17:00 08/23/17 16:59 07/28/17 09:40 Pantoprazole (Protonix) 40 mg DAILY ORAL 07/24/17 17:00 08/23/17 16:59 07/28/17 09:38 Regadenoson (Lexiscan) 0.4 mg ONCE PRN IV STRESS TEST 07/27/17 15:30 07/28/17 23:59 Sevelamer Carbonate (Renvela) 800 mg THREE TIMES A DAY ORAL 07/25/17 13:00 08/24/17 12:59 07/28/17 09:39 Tamsulosin HCl (Flomax) 0.4 mg BID ORAL 07/24/17 18:00 08/23/17 20:59 07/28/17 09:38 Allergies: Coded Allergies: AZATHIOPRINE (Verified Adverse Reaction, Intermediate, nausea; vomiting, ) LORATADINE (Verified Adverse Reaction, Mild, nausea, 10/16/16) Subjective 66 YO M admitted with chest pain and renal failure. Await Nuclear cardiolite stress test today-patient refused yesterday. Cover for Int Med-Dr Fontanez. Objective Last Vital Signs Date Time Temp Pulse Resp B/P (MAP) Pulse Ox O2 Delivery O2 Flow Rate FiO2 07/28/17 09:40 156/89 07/28/17 09:39 86 07/28/17 08:00 98.1 18 96 Nasal Cannula Laboratory Tests Test 07/27/17 20:00 07/28/17 05:00 Stool Occult Blood Positive (NEGATIVE) White Blood Count 11.4 K/UL (4.8-10.8) H Red Blood Count 2.63 M/UL (4.70-6.10) L Hemoglobin 7.9 G/DL (14.2-18.0) L Hematocrit 24.5 % (42.0-52.0) L Mean Corpuscular Volume 93 FL (80-99) Mean Corpuscular Hemoglobin 30.0 PG (27.0-31.0) Mean Corpuscular Hemoglobin Concent 32.3 G/DL (32.0-36.0) Red Cell Distribution Width 15.1 % (11.6-14.8) H Platelet Count 380 K/UL (150-450) Mean Platelet Volume 5.9 FL (6.5-10.1) L Neutrophils (%) (Auto) % (45.0-75.0) Lymphocytes (%) (Auto) % (20.0-45.0) Monocytes (%) (Auto) % (1.0-10.0) Eosinophils (%) (Auto) % (0.0-3.0) Basophils (%) (Auto) % (0.0-2.0) Differential Total Cells Counted 100 Neutrophils % (Manual) 64 % (45-75) Lymphocytes % (Manual) 22 % (20-45) Monocytes % (Manual) 4 % (1-10) Eosinophils % (Manual) 10 % (0-3) H Basophils % (Manual) 0 % (0-2) Band Neutrophils 0 % (0-8) Platelet Estimate Adequate Platelet Morphology Normal Hypochromasia 1+ Anisocytosis 1+ Erythrocyte Sedimentation Rate 131 MM/HR (0-20) H Reticulocyte Count Pending Prothrombin Time 9.3 SEC (9.30-11.50) Prothromb Time International Ratio 0.9 (0.9-1.1) Activated Partial Thromboplast Time 28 SEC (23-33) Sodium Level 138 MMOL/L (136-145) Potassium Level 5.1 MMOL/L (3.5-5.1) Chloride Level 106 MMOL/L (98-107) Carbon Dioxide Level 20 MMOL/L (21-32) L Anion Gap 12 mmol/L (5-15) Blood Urea Nitrogen 43 mg/dL (7-18) H Creatinine 5.3 MG/DL (0.55-1.30) H Estimat Glomerular Filtration Rate 13.3 mL/min (>60) Glucose Level 146 MG/DL (74-106) H Uric Acid 7.1 MG/DL (2.6-7.2) Calcium Level 8.1 MG/DL (8.5-10.1) L Phosphorus Level 5.4 MG/DL (2.5-4.9) H Magnesium Level 1.5 MG/DL (1.8-2.4) L Iron Level 65 ug/dL (50-175) Total Iron Binding Capacity 158 ug/dL (250-450) L Percent Iron Saturation 41 % (15-50) Unsaturated Iron Binding 93 ug/dL (112-346) L Total Bilirubin 0.2 MG/DL (0.2-1.0) Aspartate Amino Transf (AST/SGOT) 11 U/L (15-37) L Alanine Aminotransferase (ALT/SGPT) 11 U/L (12-78) L Alkaline Phosphatase 106 U/L (46-116) Lactate Dehydrogenase 151 U/L (81-234) Troponin I 0.158 ng/mL (0.000-0.056) Pro-B-Type Natriuretic Peptide 2691 pg/mL (0-125) H Total Protein 7.5 G/DL (6.4-8.2) Albumin 2.7 G/DL (3.4-5.0) L Globulin 4.8 g/dL Albumin/Globulin Ratio 0.6 (1.0-2.7) L Vitamin B12 Level 530 PG/ML (193-986) Folate 10.7 NG/ML (8.6-58.9) Intake and Output 07/27/17 07/28/17 18:59 06:59 Intake Total 750 ml 400 ml Balance 750 ml 400 ml Intake Oral 750 ml 400 ml # Voids 1 # Bowel Movements 1 1 Objective General Appearance: WD/WN, no apparent distress, alert EENT: PERRL/EOMI, normal ENT inspection Neck: non-tender, normal alignment, supple, normal inspection Cardiovascular: normal peripheral pulses, normal rate, regular rhythm, no gallop/murmur, no JVD Respiratory/Chest: chest wall non-tender, lungs clear, normal breath sounds, no respiratory distress, no accessory muscle use Abdomen: normal bowel sounds, non tender, soft, no organomegaly, no mass Extremities: normal range of motion, non-tender 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 Guaiac all stools. See GI consult. (4) Coronary artery disease (5) CHF (congestive heart failure) (6) COPD (chronic obstructive pulmonary disease) (7) Diabetes mellitus, type II Assessment & Plan: Continue novlog sliding scale. (8) Hypertension Assessment & Plan: Cont catapres and coreg (9) Hypercholesteremia Assessment & Plan: Continue zetia (10) Chest pain Assessment & Plan: Await nuclear cardiac stress test. See cardiology note. (11) End stage chronic kidney disease Assessment & Plan: Await renal ultrasound. See nephrology note. (12) Lupus (13) Diabetic nephropathy Status: not improved BRIAN LAGUNA Jul 28, 2017 11:12
[2017-07-28 12:00] VITALS: BP 148/89
--- NOTE | 2017-07-28 12:40 | Nephrology Progress Note ---
Assessment/Plan Problem List: (1) End stage chronic kidney disease (2) Lupus (3) Diabetic nephropathy (4) Elevated troponin I level Assessment CKD cr 5.3 stable Lupus COPD DM HTN Obese High Cholestrol BPH Anemia CAD Plan Plan: monitor Troponin I katixvenus celismarie 07/27/17 suggested need for HD- Adamantly refused Adjust bp meds Add nitrate asa beta blockers SQ heparin Anemia mejía Optimize cardiac status monitor troponin I add Phos binders risks of no HD explained- patient aware Subjective ROS Limited/Unobtainable: No Objective Objective Last 24 Hour Vital Signs Date Time Temp Pulse Resp B/P (MAP) Pulse Ox O2 Delivery O2 Flow Rate FiO2 07/28/17 09:40 156/89 07/28/17 09:39 86 156/89 07/28/17 08:00 98.1 80 18 148/73 96 Nasal Cannula 07/28/17 08:00 78 07/28/17 04:00 98.1 84 20 156/89 96 Nasal Cannula 07/28/17 04:00 86 07/28/17 00:00 97.7 76 18 151/86 95 Room Air 07/28/17 00:00 74 07/27/17 22:16 73 151/78 07/27/17 20:00 73 07/27/17 20:00 97.9 75 18 151/78 93 Room Air 07/27/17 16:00 74 07/27/17 16:00 97.0 70 22 137/78 96 Room Air Intake and Output 07/27/17 07/28/17 19:00 07:00 Intake Total 750 ml 400 ml Balance 750 ml 400 ml Intake Oral 750 ml 400 ml # Voids 1 # Bowel Movements 1 1 Laboratory Tests 07/27/17 20:00: Stool Occult Blood Positive 07/28/17 05:00: White Blood Count 11.4H, Red Blood Count 2.63L, Hemoglobin 7.9L, Hematocrit 24.5L, Mean Corpuscular Volume 93, Mean Corpuscular Hemoglobin 30.0, Mean Corpuscular Hemoglobin Concent 32.3, Red Cell Distribution Width 15.1H, Platelet Count 380, Mean Platelet Volume 5.9L, Neutrophils (%) (Auto) , Lymphocytes (%) (Auto) , Monocytes (%) (Auto) , Eosinophils (%) (Auto) , Basophils (%) (Auto) , Differential Total Cells Counted 100, Neutrophils % ( Manual) 64, Lymphocytes % (Manual) 22, Monocytes % (Manual) 4, Eosinophils % ( Manual) 10H, Basophils % (Manual) 0, Band Neutrophils 0, Platelet Estimate Adequate, Platelet Morphology Normal, Hypochromasia 1+, Anisocytosis 1+, Erythrocyte Sedimentation Rate 131H, Reticulocyte Count 1.1, Prothrombin Time 9.3, Prothromb Time International Ratio 0.9, Activated Partial Thromboplast Time 28, Sodium Level 138, Potassium Level 5.1, Chloride Level 106, Carbon Dioxide Level 20L, Anion Gap 12, Blood Urea Nitrogen 43H, Creatinine 5.3H, Estimat Glomerular Filtration Rate 13.3, Glucose Level 146H, Uric Acid 7.1, Calcium Level 8.1L, Phosphorus Level 5.4H, Magnesium Level 1.5L, Iron Level 65, Total Iron Binding Capacity 158L, Percent Iron Saturation 41, Unsaturated Iron Binding 93L, Total Bilirubin 0.2, Aspartate Amino Transf (AST/SGOT) 11L, Alanine Aminotransferase (ALT/SGPT) 11L, Alkaline Phosphatase 106, Lactate Dehydrogenase 151, Troponin I 0.158H, Pro-B-Type Natriuretic Peptide 2691H, Total Protein 7.5, Albumin 2.7L, Globulin 4.8, Albumin/Globulin Ratio 0.6L, Vitamin B12 Level 530, Folate 10.7 Height (Feet): 6 Height (Inches): 1.00 Weight (Pounds): 255 General Appearance: no apparent distress Cardiovascular: normal rate Respiratory/Chest: decreased breath sounds Abdomen: soft, other - obese Objective no other change AVELINA MARTE Jul 28, 2017 12:40
--- NOTE | 2017-07-28 15:06 | Diagnostic Imaging Report ---
Indication: Dyspnea Technique: One view of the chest Comparison: none Findings: The heart is enlarged. There is questionably some retrocardiac consolidation. The pleural spaces are grossly clear. Impression: Cardiomegaly. Possible retrocardiac consolidation
[2017-07-28 16:00] VITALS: BP_SYST 135; BP_SYST 146; BP_DIAS 82; BP_DIAS 90
--- NOTE | 2017-07-28 16:18 | Pulmonology Progress Note ---
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 Subjective ROS Limited/Unobtainable: No Constitutional: Reports: no symptoms HEENT: Repors: no symptoms Respiratory: Reports: no symptoms Allergies: Coded Allergies: AZATHIOPRINE (Verified Adverse Reaction, Intermediate, nausea; vomiting, ) LORATADINE (Verified Adverse Reaction, Mild, nausea, 10/16/16) Objective Last 24 Hour Vital Signs Date Time Temp Pulse Resp B/P (MAP) Pulse Ox O2 Delivery O2 Flow Rate FiO2 07/28/17 12:00 81 07/28/17 12:00 97.5 81 18 148/89 98 Room Air 07/28/17 09:40 156/89 07/28/17 09:39 86 156/89 07/28/17 08:00 98.1 80 18 148/73 96 Nasal Cannula 07/28/17 08:00 78 07/28/17 04:00 98.1 84 20 156/89 96 Nasal Cannula 07/28/17 04:00 86 07/28/17 00:00 97.7 76 18 151/86 95 Room Air 07/28/17 00:00 74 07/27/17 22:16 73 151/78 07/27/17 20:00 73 07/27/17 20:00 97.9 75 18 151/78 93 Room Air Intake and Output 07/27/17 07/28/17 19:00 07:00 Intake Total 750 ml 400 ml Balance 750 ml 400 ml Intake Oral 750 ml 400 ml # Voids 1 # Bowel Movements 1 1 General Appearance: WD/WN HEENT: normocephalic, atraumatic Respiratory/Chest: chest wall non-tender, lungs clear Cardiovascular: normal peripheral pulses, normal rate Abdomen: normal bowel sounds, soft, non tender Extremities: no cyanosis 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 Lymphatic: no neck adenopathy Laboratory Tests 07/27/17 20:00: Stool Occult Blood Positive 07/28/17 05:00: White Blood Count 11.4H, Red Blood Count 2.63L, Hemoglobin 7.9L, Hematocrit 24.5L, Mean Corpuscular Volume 93, Mean Corpuscular Hemoglobin 30.0, Mean Corpuscular Hemoglobin Concent 32.3, Red Cell Distribution Width 15.1H, Platelet Count 380, Mean Platelet Volume 5.9L, Neutrophils (%) (Auto) , Lymphocytes (%) (Auto) , Monocytes (%) (Auto) , Eosinophils (%) (Auto) , Basophils (%) (Auto) , Differential Total Cells Counted 100, Neutrophils % ( Manual) 64, Lymphocytes % (Manual) 22, Monocytes % (Manual) 4, Eosinophils % ( Manual) 10H, Basophils % (Manual) 0, Band Neutrophils 0, Platelet Estimate Adequate, Platelet Morphology Normal, Hypochromasia 1+, Anisocytosis 1+, Erythrocyte Sedimentation Rate 131H, Reticulocyte Count 1.1, Prothrombin Time 9.3, Prothromb Time International Ratio 0.9, Activated Partial Thromboplast Time 28, Sodium Level 138, Potassium Level 5.1, Chloride Level 106, Carbon Dioxide Level 20L, Anion Gap 12, Blood Urea Nitrogen 43H, Creatinine 5.3H, Estimat Glomerular Filtration Rate 13.3, Glucose Level 146H, Uric Acid 7.1, Calcium Level 8.1L, Phosphorus Level 5.4H, Magnesium Level 1.5L, Iron Level 65, Total Iron Binding Capacity 158L, Percent Iron Saturation 41, Unsaturated Iron Binding 93L, Total Bilirubin 0.2, Aspartate Amino Transf (AST/SGOT) 11L, Alanine Aminotransferase (ALT/SGPT) 11L, Alkaline Phosphatase 106, Lactate Dehydrogenase 151, Troponin I 0.158H, Pro-B-Type Natriuretic Peptide 2691H, Total Protein 7.5, Albumin 2.7L, Globulin 4.8, Albumin/Globulin Ratio 0.6L, Vitamin B12 Level 530, Folate 10.7 Current Medications Medications (Trade) Dose Ordered Sig/Yefri Route PRN Reason Start Time Stop Time Status Last Admin Dose Admin Allopurinol (Allopurinol) 300 mg DAILY ORAL 07/27/17 09:00 08/26/17 08:59 07/28/17 09:40 Aspirin (ASA) 325 mg DAILY ORAL 07/25/17 09:00 08/24/17 08:59 07/28/17 09:39 Atorvastatin Calcium (Lipitor) 80 mg QHS ORAL 07/24/17 21:00 08/23/17 20:59 07/27/17 22:16 Carvedilol (Coreg) 12.5 mg EVERY 12 HOURS ORAL 07/24/17 09:00 08/23/17 08:59 07/28/17 09:39 Clonidine HCl (Catapres) 0.1 mg Q4H PRN ORAL bp over 170 syst 07/24/17 16:00 08/23/17 15:59 07/24/17 17:11 Dextrose (Dextrose 50%) STAT PRN IV Hypoglycemia 07/24/17 03:30 08/23/17 03:29 Docusate Sodium (Colace) 100 mg THREE TIMES A DAY ORAL 07/24/17 18:00 08/23/17 17:59 07/28/17 12:45 EZETIMIBE (Zetia) 10 mg DAILY ORAL 07/24/17 09:00 08/23/17 08:59 07/28/17 09:38 Gabapentin (Neurontin) 300 mg THREE TIMES A DAY ORAL 07/24/17 09:00 08/23/17 08:59 07/28/17 12:45 Heparin Sodium (Porcine) (Heparin 5000 units/ml) 5,000 units EVERY 12 HOURS SUBQ 07/24/17 09:00 08/23/17 08:59 07/28/17 09:43 Insulin Aspart (NovoLOG) BEFORE MEALS AND HS SUBQ 07/24/17 06:30 08/23/17 06:29 07/28/17 12:42 Insulin Detemir (Levemir) 10 units DAILY SUBQ 07/24/17 09:00 08/23/17 08:59 07/28/17 09:43 Isosorbide Mononitrate (Imdur) 60 mg DAILY ORAL 07/26/17 14:00 08/25/17 13:59 07/28/17 09:40 Metolazone (Zaroxolyn) 10 mg DAILY ORAL 07/24/17 17:00 08/23/17 16:59 07/28/17 09:40 Pantoprazole (Protonix) 40 mg DAILY ORAL 07/24/17 17:00 08/23/17 16:59 07/28/17 09:38 Regadenoson (Lexiscan) 0.4 mg ONCE PRN IV STRESS TEST 07/27/17 15:30 07/28/17 23:59 07/28/17 14:57 Sevelamer Carbonate (Renvela) 800 mg THREE TIMES A DAY ORAL 07/25/17 13:00 08/24/17 12:59 07/28/17 12:45 Tamsulosin HCl (Flomax) 0.4 mg BID ORAL 07/24/17 18:00 08/23/17 20:59 07/28/17 09:38 MARY GREEN Jul 28, 2017 16:18
--- NOTE | 2017-07-28 16:20 | Diagnostic Imaging Report ---
Indications: Chest pain, congestive heart failure, hypertension Technique: Single day single isotope protocol utilized. Initially, resting images obtained using IV administration 9.7 millicuries 99M technetium Myoview. Subsequently, patient underwent Lexiscan stress testing. See cardiology report for details. During Lexiscan infusion, IV administration 31.2 mCi 99 M technetium Myoview. SPECT and planar images obtained. SPECT images gated to 8 phases of the cardiac cycle were also obtained, and reformatted into cine images for evaluation of ejection fraction. Comparison: none Findings: Per cardiology report, patient experienced no symptoms. Per cardiology report, resting EKG demonstrates normal sinus rhythm, cannot rule out anterior VT. No significant ST or T-wave changes noted during the infusion. Imaging demonstrates a sizable perfusion defect in the inferior wall and apex which demonstrates slight filling at the base on the resting images. On the coronal long axis images, there is also suggestion of slightly greater apical activity on the resting images. There is very slight left ventricular dilatation. Calculated post stress ejection fraction 44%. There is slight relative hypokinesis in the inferior wall Impression: Nonischemic clinical response to pharmacologic stress, per cardiology report Nonischemic electrocardiographic response to pharmacologic stress, per cardiology report Sizable inferior wall infarct. There is suggestion of mike-infarct ischemia at the base and apical edges of the infarct Calculated post stress ejection fraction 44%
--- NOTE | 2017-07-28 16:35 | Cardiac Electrophysiology PN ---
Assessment/Plan Status Narrative Impression: Nonischemic clinical response to pharmacologic stress, per cardiology report Nonischemic electrocardiographic response to pharmacologic stress, per cardiology report Sizable inferior wall infarct. There is suggestion of mike-infarct ischemia at the base and apical edges of the infarct Calculated post stress ejection fraction 44% Assessment/Plan 1. Chest pain and troponin leak. Pain is atypical. His EKG is completely normal. Echocardiogram showed normal left ventricular systolic function. The troponin leak is likely due to renal failure as the patient's creatinine is 5.4. We will treat him medically with aspirin, Lipitor , Imdur, and Coreg. Lexiscan Cardiolite stress test done today that showed "suggestion of mike- infarct ischemia at the base and apical edges of the infarct" Not Large enough to justify cardiac cath in this patient who is on the verge on going on HD. Continue medical therapy as has no chest pain. 2. History of congestive heart failure. Ejection fraction currently is normal. Continue on Coreg, Zaroxolyn 10 mg daily as well as Imdur 3. Renal failure likely due to patient's underlying lupus.Refused HD at this time. 4. Diabetes. 5. Obesity. 6. Hyperlipidemia. 7. Anemia with drop of hemoglobin from 10.2 to 8.2. Stable Hb 8.[address] Carr Subjective Subjective Had stress test today.No chest pain or SOB. Objective Last 24 Hour Vital Signs Date Time Temp Pulse Resp B/P (MAP) Pulse Ox O2 Delivery O2 Flow Rate FiO2 07/28/17 12:00 81 07/28/17 12:00 97.5 81 18 148/89 98 Room Air 07/28/17 09:40 156/89 07/28/17 09:39 86 156/89 07/28/17 08:00 98.1 80 18 148/73 96 Nasal Cannula 07/28/17 08:00 78 07/28/17 04:00 98.1 84 20 156/89 96 Nasal Cannula 07/28/17 04:00 86 07/28/17 00:00 97.7 76 18 151/86 95 Room Air 07/28/17 00:00 74 07/27/17 22:16 73 151/78 07/27/17 20:00 73 07/27/17 20:00 97.9 75 18 151/78 93 Room Air Intake and Output 07/27/17 07/28/17 19:00 07:00 Intake Total 750 ml 400 ml Balance 750 ml 400 ml Intake Oral 750 ml 400 ml # Voids 1 # Bowel Movements 1 1 Laboratory Tests Test 07/27/17 20:00 07/28/17 05:00 Stool Occult Blood Positive (NEGATIVE) White Blood Count 11.4 K/UL (4.8-10.8) H Red Blood Count 2.63 M/UL (4.70-6.10) L Hemoglobin 7.9 G/DL (14.2-18.0) L Hematocrit 24.5 % (42.0-52.0) L Mean Corpuscular Volume 93 FL (80-99) Mean Corpuscular Hemoglobin 30.0 PG (27.0-31.0) Mean Corpuscular Hemoglobin Concent 32.3 G/DL (32.0-36.0) Red Cell Distribution Width 15.1 % (11.6-14.8) H Platelet Count 380 K/UL (150-450) Mean Platelet Volume 5.9 FL (6.5-10.1) L Neutrophils (%) (Auto) % (45.0-75.0) Lymphocytes (%) (Auto) % (20.0-45.0) Monocytes (%) (Auto) % (1.0-10.0) Eosinophils (%) (Auto) % (0.0-3.0) Basophils (%) (Auto) % (0.0-2.0) Differential Total Cells Counted 100 Neutrophils % (Manual) 64 % (45-75) Lymphocytes % (Manual) 22 % (20-45) Monocytes % (Manual) 4 % (1-10) Eosinophils % (Manual) 10 % (0-3) H Basophils % (Manual) 0 % (0-2) Band Neutrophils 0 % (0-8) Platelet Estimate Adequate Platelet Morphology Normal Hypochromasia 1+ Anisocytosis 1+ Erythrocyte Sedimentation Rate 131 MM/HR (0-20) H Reticulocyte Count 1.1 % (0.0-2.0) Prothrombin Time 9.3 SEC (9.30-11.50) Prothromb Time International Ratio 0.9 (0.9-1.1) Activated Partial Thromboplast Time 28 SEC (23-33) Sodium Level 138 MMOL/L (136-145) Potassium Level 5.1 MMOL/L (3.5-5.1) Chloride Level 106 MMOL/L (98-107) Carbon Dioxide Level 20 MMOL/L (21-32) L Anion Gap 12 mmol/L (5-15) Blood Urea Nitrogen 43 mg/dL (7-18) H Creatinine 5.3 MG/DL (0.55-1.30) H Estimat Glomerular Filtration Rate 13.3 mL/min (>60) Glucose Level 146 MG/DL (74-106) H Uric Acid 7.1 MG/DL (2.6-7.2) Calcium Level 8.1 MG/DL (8.5-10.1) L Phosphorus Level 5.4 MG/DL (2.5-4.9) H Magnesium Level 1.5 MG/DL (1.8-2.4) L Iron Level 65 ug/dL (50-175) Total Iron Binding Capacity 158 ug/dL (250-450) L Percent Iron Saturation 41 % (15-50) Unsaturated Iron Binding 93 ug/dL (112-346) L Total Bilirubin 0.2 MG/DL (0.2-1.0) Aspartate Amino Transf (AST/SGOT) 11 U/L (15-37) L Alanine Aminotransferase (ALT/SGPT) 11 U/L (12-78) L Alkaline Phosphatase 106 U/L (46-116) Lactate Dehydrogenase 151 U/L (81-234) Troponin I 0.158 ng/mL (0.000-0.056) Pro-B-Type Natriuretic Peptide 2691 pg/mL (0-125) H Total Protein 7.5 G/DL (6.4-8.2) Albumin 2.7 G/DL (3.4-5.0) L Globulin 4.8 g/dL Albumin/Globulin Ratio 0.6 (1.0-2.7) L Vitamin B12 Level 530 PG/ML (193-986) Folate 10.7 NG/ML (8.6-58.9) Objective HEAD AND NECK: No JVD. LUNGS: Clear. CARDIOVASCULAR: Regular S1 and S2 with no gallop or murmur. ABDOMEN: Soft and nontender. EXTREMITIES: He has 1+ pitting edema. WILFREDO HECK Jul 28, 2017 16:35
--- NOTE | 2017-07-28 19:18 | Cardiology Report ---
APPROVED REPORT EXAM: Two-dimensional and M-mode echocardiogram with Doppler and color Doppler. INDICATION Chest Pain M-Mode DIMENSIONS IVSd1.3 (0.7-1.1cm)Left Atrium (MM)3.8 (1.6-4.0cm) LVDd5.0 (3.5-5.6cm)Aortic Root3.8 (2.0-3.7cm) PWd1.5 (0.7-1.1cm)Aortic Cusp Exc.2.0 (1.5-2.0cm) LVDs4.2 (2.5-4.0cm) PWs1.8 cm Technically difficult study due to poor acoustical windows. Normal left ventricular chamber size, systolic function and wall motion. Left ventricular ejection fraction estimated to be 55-60 %. No evidence of left ventricular hypertrophy. No evidence of pericardial or pleural effusion. Right cardiac chamber sizes are within normal limits. Moderate left atrial enlargement by 2D. Focal aortic valve sclerosis with adequate cusp excursion. Thickened mitral valve leaflets with normal excursion. Mild mitral annulus and aortic root calcification. Pulmonic valve not well visualized. Normal tricuspid valve structure. IVC is normal in size and collapsible with respiration. A color flow and spectral Doppler study was performed and revealed: No aortic regurgitation. Moderate mitral regurgitation. Mitral inflow velocities indicates possible pseudo normalization pattern implying significant left ventricular diastolic dysfunction. No tricuspid regurgitation.
--- NOTE | 2017-07-28 19:28 | Cardiology Report ---
APPROVED REPORT EKG Measurement Heart [id number] Normal sinus rhythm Normal ECG
--- NOTE | 2017-07-28 19:30 | Cardiology Report ---
APPROVED REPORT EKG Measurement Heart [id number] Normal sinus rhythm Normal ECG
[2017-07-28 20:23] VITALS: BP 145/86
[2017-07-28] MEDS: Atorvastatin 80mg tab ORAL SCH (21:33)
--- NOTE | 2017-07-28 22:35 | General Progress Note ---
Assessment/Plan Assessment/Plan Assessment - Anemia, likely multifactorial (renal failure, chronic disease) - s/p Colonoscopy +/- EGD x 3 in 2017 - h/o colon polyps - ESRD - SLE / IDDM Recommendations - check stool for OB - monitor CBC - Iron supplementation PRN - Outpatient capsule endoscopy Subjective Allergies: Coded Allergies: AZATHIOPRINE (Verified Adverse Reaction, Intermediate, nausea; vomiting, ) LORATADINE (Verified Adverse Reaction, Mild, nausea, 10/16/16) Subjective Feels OK no abdominal pain tolerating PO for stress test today Objective Last 24 Hour Vital Signs Date Time Temp Pulse Resp B/P (MAP) Pulse Ox O2 Delivery O2 Flow Rate FiO2 07/28/17 21:33 85 145/86 07/28/17 20:23 98.1 85 20 145/86 96 Room Air 07/28/17 20:00 89 07/28/17 16:00 97.2 84 18 146/90 97 Room Air 07/28/17 16:00 82 07/28/17 12:00 81 07/28/17 12:00 97.5 81 18 148/89 98 Room Air 07/28/17 09:40 156/89 07/28/17 09:39 86 156/89 07/28/17 08:00 98.1 80 18 148/73 96 Nasal Cannula 07/28/17 08:00 78 07/28/17 04:00 98.1 84 20 156/89 96 Nasal Cannula 07/28/17 04:00 86 07/28/17 00:00 97.7 76 18 151/86 95 Room Air 07/28/17 00:00 74 Intake and Output 07/27/17 07/28/17 19:00 07:00 Intake Total 750 ml 400 ml Balance 750 ml 400 ml Intake Oral 750 ml 400 ml # Voids 1 # Bowel Movements 1 1 Laboratory Tests 07/28/17 05:00: White Blood Count 11.4H, Red Blood Count 2.63L, Hemoglobin 7.9L, Hematocrit 24.5L, Mean Corpuscular Volume 93, Mean Corpuscular Hemoglobin 30.0, Mean Corpuscular Hemoglobin Concent 32.3, Red Cell Distribution Width 15.1H, Platelet Count 380, Mean Platelet Volume 5.9L, Neutrophils (%) (Auto) , Lymphocytes (%) (Auto) , Monocytes (%) (Auto) , Eosinophils (%) (Auto) , Basophils (%) (Auto) , Differential Total Cells Counted 100, Neutrophils % ( Manual) 64, Lymphocytes % (Manual) 22, Monocytes % (Manual) 4, Eosinophils % ( Manual) 10H, Basophils % (Manual) 0, Band Neutrophils 0, Platelet Estimate Adequate, Platelet Morphology Normal, Hypochromasia 1+, Anisocytosis 1+, Erythrocyte Sedimentation Rate 131H, Reticulocyte Count 1.1, Prothrombin Time 9.3, Prothromb Time International Ratio 0.9, Activated Partial Thromboplast Time 28, Sodium Level 138, Potassium Level 5.1, Chloride Level 106, Carbon Dioxide Level 20L, Anion Gap 12, Blood Urea Nitrogen 43H, Creatinine 5.3H, Estimat Glomerular Filtration Rate 13.3, Glucose Level 146H, Uric Acid 7.1, Calcium Level 8.1L, Phosphorus Level 5.4H, Magnesium Level 1.5L, Iron Level 65, Total Iron Binding Capacity 158L, Percent Iron Saturation 41, Unsaturated Iron Binding 93L, Total Bilirubin 0.2, Aspartate Amino Transf (AST/SGOT) 11L, Alanine Aminotransferase (ALT/SGPT) 11L, Alkaline Phosphatase 106, Lactate Dehydrogenase 151, Troponin I 0.158H, Pro-B-Type Natriuretic Peptide 2691H, Total Protein 7.5, Albumin 2.7L, Globulin 4.8, Albumin/Globulin Ratio 0.6L, Vitamin B12 Level 530, Folate 10.7 Height (Feet): 6 Height (Inches): 1.00 Weight (Pounds): 255 Objective WDWN AA man NCAT supple CTA RRR Soft ND NT no edema ARASELI SORTO Jul 28, 2017 22:35
[2017-07-29] VITALS (10 sets, daily range): BP systolic 134–159; BP diastolic 62–91
[2017-07-29] MEDS: NovoLOG Insulin Flexpen SUBQ SCH ×4 (06:06→21:16)
[2017-07-29 06:49] LABS: HEMATOCRIT 23.4 % (42.0-52.0); HEMOGLOBIN 7.8 G/DL (14.2-18.0); MEAN CORPUSCULAR VOLUME 93 FL (80-99); PLATELET COUNT 361 K/UL (150-450); RED BLOOD COUNT 2.52 M/UL (4.70-6.10); RED CELL DISTRIBUTION WIDTH 14.9 % (11.6-14.8); WHITE BLOOD COUNT 12.6 K/UL (4.8-10.8)
[2017-07-29 07:51] LABS: ANION GAP 10 mmol/L (5-15); BLOOD UREA NITROGEN 46 mg/dL (7-18); CARBON DIOXIDE 21 MMOL/L (21-32); CHLORIDE 105 MMOL/L (98-107); POTASSIUM 5.3 MMOL/L (3.5-5.1); SODIUM 136 MMOL/L (136-145)
[2017-07-29] MEDS: Tamsulosin 0.4mg cap ORAL SCH ×2 (08:30→17:17)
[2017-07-29] MEDS: Docusate 100mg cap ORAL SCH ×3 (08:30→17:16)
[2017-07-29] MEDS: Imdur 30mg tab ORAL SCH (08:31)
[2017-07-29] MEDS: Carvedilol 12.5mg tab ORAL SCH (08:31)
[2017-07-29] MEDS: Levemir Flexpen SUBQ SCH (08:34)
[2017-07-29] MEDS: Heparin 5000 units/ml inj SUBQ SCH ×2 (08:35→21:14)
[2017-07-29 10:00] LABS: ALANINE AMINOTRANSFERASE 9 U/L (12-78); ALBUMIN 2.7 G/DL (3.4-5.0); ALKALINE PHOSPHATASE 91 U/L (46-116); ASPARTATE AMINO TRANSFERASE 12 U/L (15-37); BILIRUBIN,DIRECT < 0.1 MG/DL (0.0-0.3); BILIRUBIN,TOTAL 0.2 MG/DL (0.2-1.0); PHOSPHORUS 5.1 MG/DL (2.5-4.9)
[2017-07-29] MEDS ORDERED: Sodium Polystyrene Sulfonate 15gm Powder ORAL ONE (10:00)
--- NOTE | 2017-07-29 12:14 | Nephrology Progress Note ---
Assessment/Plan Problem List: (1) End stage chronic kidney disease Assessment: diabetic nephropathy (2) Lupus (3) Diabetic nephropathy (4) Elevated troponin I level Assessment CKD cr 5.3 stable Lupus COPD DM HTN Obese High Cholestrol BPH Anemia CAD Plan Plan: patient agreeable to dialysis and permacath now ! kayexelate pogiven 07/27/17 Adjust bp meds Add nitrate asa beta blockers SQ heparin, adjust dose Anemia mejía Optimize cardiac status monitor troponin I add Phos binders, adjust dose per orders discussed with RN Subjective ROS Limited/Unobtainable: No Constitutional: Reports: malaise, weakness Objective Objective Last 24 Hour Vital Signs Date Time Temp Pulse Resp B/P (MAP) Pulse Ox O2 Delivery O2 Flow Rate FiO2 07/29/17 08:31 145/84 07/29/17 08:31 81 145/84 07/29/17 04:10 98.2 81 20 134/62 97 07/29/17 04:00 81 07/29/17 00:24 98.2 79 20 140/79 95 Room Air 07/29/17 00:00 101 07/28/17 21:33 85 145/86 07/28/17 20:23 98.1 85 20 145/86 96 Room Air 07/28/17 20:00 89 07/28/17 16:00 97.2 84 18 146/90 97 Room Air 07/28/17 16:00 82 Intake and Output 07/28/17 07/29/17 19:00 07:00 Intake Total 360 ml Balance 360 ml Intake Oral 360 ml # Voids 2 2 Laboratory Tests 07/29/17 06:00: White Blood Count 12.6H, Red Blood Count 2.52L, Hemoglobin 7.8L, Hematocrit 23.4L, Mean Corpuscular Volume 93, Mean Corpuscular Hemoglobin 30.9, Mean Corpuscular Hemoglobin Concent 33.4, Red Cell Distribution Width 14.9H, Platelet Count 361, Mean Platelet Volume 6.1L, Neutrophils (%) (Auto) , Lymphocytes (%) (Auto) , Monocytes (%) (Auto) , Eosinophils (%) (Auto) , Basophils (%) (Auto) , Differential Total Cells Counted 100, Neutrophils % ( Manual) 71, Lymphocytes % (Manual) 20, Monocytes % (Manual) 5, Eosinophils % ( Manual) 4H, Basophils % (Manual) 0, Band Neutrophils 0, Platelet Estimate Adequate, Platelet Morphology Normal, Hypochromasia 1+, Anisocytosis 1+, Sodium Level 136, Potassium Level 5.3H, Chloride Level 105, Carbon Dioxide Level 21, Anion Gap 10, Blood Urea Nitrogen 46H, Creatinine 5.0H, Estimat Glomerular Filtration Rate 14.2, Glucose Level 127H, Calcium Level 8.0L, Phosphorus Level 5.1H, Magnesium Level 1.3L, Total Bilirubin 0.2, Direct Bilirubin < 0.1, Aspartate Amino Transf (AST/SGOT) 12L, Alanine Aminotransferase (ALT/SGPT) 9L, Alkaline Phosphatase 91, Troponin I 0.151H, Total Protein 7.4, Albumin 2.7L Height (Feet): 6 Height (Inches): 1.00 Weight (Pounds): 255 General Appearance: no apparent distress Cardiovascular: normal rate Respiratory/Chest: decreased breath sounds Abdomen: distended Objective no other change AVELINA MARTE Jul 29, 2017 12:14
[2017-07-29] MEDS ORDERED: HydrALAZINE 25mg tab ORAL PRN (12:15)
[2017-07-29] MEDS ORDERED: Lidocaine 2% 20mg/ml/Epi 0.005mg/ml 20ml vial INJ ONE (14:00)
[2017-07-29] MEDS ORDERED: Heparin 2000 units/Ns 1000ml INJ ONE (14:00)
[2017-07-29] MEDS ORDERED: Heparin Sod 1000 units/ml 10ml INJ ONE (14:00)
--- NOTE | 2017-07-29 14:55 | Pre-Procedure Note/Attestation ---
Pre-Procedure Note/Attestation Complete Prior to Procedure Planned Procedure: right Procedure Narrative: Permacath Indications for Procedure Pre-Operative Diagnosis: renal failure Attestation I attest that I discussed the nature of the procedure; its benefits; risks and complications; and alternatives (and the risks and benefits of such alternatives ), prior to the procedure, with the patient (or the patient's legal medical customer service representative). I attest that, if there was a reasonable possibility of needing a blood transfusion, the patient (or the patient's legal medical customer service representative) was given the [facility] standardized written summary, pursuant to the [place] Blood Safety Act ([place] Health and Safety Code # 1645, as amended). I attest that I re-evaluated the patient just prior to the surgery and that there has been no change in the patient's H&P, except as documented below: JACKY LOPEZ M.D. Jul 29, 2017 14:55
--- NOTE | 2017-07-29 15:43 | Diagnostic Imaging Report ---
Indications: Needs long-term dialysis access Technique: Informed consent obtained prior to commencement of the procedure. Procedure timeout performed. Total sterile technique, including sterile probe cover and sterile gel, sterile gloves, hand hygiene, hat, mask,, sterile gown, large sterile drape, and preparation with 2% chlorhexidine utilized. Local anesthesia with 1% lidocaine. Under real-time ultrasound guidance, puncture right internal jugular vein using 21-gauge micropuncture needle, passage 0.018 guidewire, exchange for 4 Setswana micropuncture introducer. The guidewire was used to measure the appropriate catheter length, and was removed. The sheath was left in place. The subcutaneous tract was then anesthetized with 1% lidocaine. A chest dermatotomy was made . The tunneling device was used to pull a 14.5 Setswana 23 cm BioFlo catheter through the subcutaneous tunnel to the neck dermatotomy. A guidewire was passed through the neck introducer into the inferior vena cava, and serial dilators were passed over it, followed by the introduction of a 14.5 Setswana AirGuard peel-away sheath. The catheter was then introduced into the sheath, the peel-away sheath was removed. Digital radiograph documents satisfactory catheter tip position in the high right atrium, no kinking at the insertion site. Both catheter ports aspirated and flushed. Catheter was fixed to the skin. Patient tolerated procedure well without immediate complication. Total fluoroscopy time 2.4 minutes. Total dose area product 316 dGycm2 Comparison: None. Findings: Completion radiograph documents satisfactory position and course of the catheter, catheter tip at the high right atrium. Impression: Successful placement of right transjugular tunneled dialysis catheter, as described above
--- NOTE | 2017-07-29 15:54 | Pulmonology Progress Note ---
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 Subjective ROS Limited/Unobtainable: No Constitutional: Reports: no symptoms Respiratory: Reports: no symptoms Cardiovascular: Reports: no symptoms Allergies: Coded Allergies: AZATHIOPRINE (Verified Adverse Reaction, Intermediate, nausea; vomiting, ) LORATADINE (Verified Adverse Reaction, Mild, nausea, 10/16/16) Objective Last 24 Hour Vital Signs Date Time Temp Pulse Resp B/P (MAP) Pulse Ox O2 Delivery O2 Flow Rate FiO2 07/29/17 14:50 71 16 151/90 98 Room Air 07/29/17 14:45 71 24 152/90 98 Room Air 07/29/17 14:40 72 17 150/91 99 Room Air 07/29/17 14:09 75 16 07/29/17 12:00 97.0 84 18 136/84 97 07/29/17 08:31 145/84 07/29/17 08:31 81 145/84 07/29/17 08:00 97.5 81 20 145/84 96 07/29/17 04:10 98.2 81 20 134/62 97 07/29/17 04:00 81 07/29/17 00:24 98.2 79 20 140/79 95 Room Air 07/29/17 00:00 101 07/28/17 21:33 85 145/86 07/28/17 20:23 98.1 85 20 145/86 96 Room Air 07/28/17 20:00 89 07/28/17 16:00 97.2 84 18 146/90 97 Room Air 07/28/17 16:00 82 Intake and Output 07/28/17 07/29/17 19:00 07:00 Intake Total 360 ml Balance 360 ml Intake Oral 360 ml # Voids 2 2 General Appearance: WD/WN HEENT: normocephalic, atraumatic Respiratory/Chest: chest wall non-tender, lungs clear Cardiovascular: normal peripheral pulses, normal rate Abdomen: normal bowel sounds, soft, non tender Extremities: no cyanosis Neurologic/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: 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 Laboratory Tests 07/29/17 06:00: White Blood Count 12.6H, Red Blood Count 2.52L, Hemoglobin 7.8L, Hematocrit 23.4L, Mean Corpuscular Volume 93, Mean Corpuscular Hemoglobin 30.9, Mean Corpuscular Hemoglobin Concent 33.4, Red Cell Distribution Width 14.9H, Platelet Count 361, Mean Platelet Volume 6.1L, Neutrophils (%) (Auto) , Lymphocytes (%) (Auto) , Monocytes (%) (Auto) , Eosinophils (%) (Auto) , Basophils (%) (Auto) , Differential Total Cells Counted 100, Neutrophils % ( Manual) 71, Lymphocytes % (Manual) 20, Monocytes % (Manual) 5, Eosinophils % ( Manual) 4H, Basophils % (Manual) 0, Band Neutrophils 0, Platelet Estimate Adequate, Platelet Morphology Normal, Hypochromasia 1+, Anisocytosis 1+, Sodium Level 136, Potassium Level 5.3H, Chloride Level 105, Carbon Dioxide Level 21, Anion Gap 10, Blood Urea Nitrogen 46H, Creatinine 5.0H, Estimat Glomerular Filtration Rate 14.2, Glucose Level 127H, Calcium Level 8.0L, Phosphorus Level 5.1H, Magnesium Level 1.3L, Total Bilirubin 0.2, Direct Bilirubin < 0.1, Aspartate Amino Transf (AST/SGOT) 12L, Alanine Aminotransferase (ALT/SGPT) 9L, Alkaline Phosphatase 91, Troponin I 0.151H, Total Protein 7.4, Albumin 2.7L Current Medications Medications (Trade) Dose Ordered Sig/Yefri Route PRN Reason Start Time Stop Time Status Last Admin Dose Admin Allopurinol (Allopurinol) 300 mg DAILY ORAL 07/27/17 09:00 08/26/17 08:59 07/29/17 08:30 Aspirin (ASA) 325 mg DAILY ORAL 07/25/17 09:00 08/24/17 08:59 07/29/17 08:29 Atorvastatin Calcium (Lipitor) 80 mg QHS ORAL 07/24/17 21:00 08/23/17 20:59 07/28/17 21:33 Carvedilol (Coreg) 25 mg EVERY 12 HOURS ORAL 07/29/17 21:00 08/28/17 20:59 Dextrose (Dextrose 50%) STAT PRN IV Hypoglycemia 07/24/17 03:30 08/23/17 03:29 Docusate Sodium (Colace) 100 mg THREE TIMES A DAY ORAL 07/24/17 18:00 08/23/17 17:59 07/29/17 12:11 EZETIMIBE (Zetia) 10 mg DAILY ORAL 07/24/17 09:00 08/23/17 08:59 07/29/17 08:29 Gabapentin (Neurontin) 300 mg THREE TIMES A DAY ORAL 07/24/17 09:00 08/23/17 08:59 07/29/17 12:12 Heparin Sodium (Porcine) (Heparin 5000 units/ml) 5,000 units EVERY 12 HOURS SUBQ 07/24/17 09:00 08/23/17 08:59 07/29/17 08:35 Hydralazine HCl (Apresoline) 25 mg Q4H PRN ORAL bp over 160 syst 07/29/17 12:15 08/28/17 12:14 Insulin Aspart (NovoLOG) BEFORE MEALS AND HS SUBQ 07/24/17 06:30 08/23/17 06:29 07/29/17 11:37 Insulin Detemir (Levemir) 10 units DAILY SUBQ 07/24/17 09:00 08/23/17 08:59 07/29/17 08:34 Isosorbide Mononitrate (Imdur) 60 mg DAILY ORAL 07/26/17 14:00 08/25/17 13:59 07/29/17 08:31 Pantoprazole (Protonix) 40 mg DAILY ORAL 07/24/17 17:00 08/23/17 16:59 07/29/17 08:30 Sevelamer Carbonate (Renvela) 1,600 mg THREE TIMES A DAY ORAL 07/29/17 13:00 08/28/17 12:59 Tamsulosin HCl (Flomax) 0.4 mg BID ORAL 07/24/17 18:00 08/23/17 20:59 07/29/17 08:30 MARY GREEN Jul 29, 2017 15:54
--- NOTE | 2017-07-29 16:31 | Cardiac Electrophysiology PN ---
Assessment/Plan Status Narrative Impression: Nonischemic clinical response to pharmacologic stress, per cardiology report Nonischemic electrocardiographic response to pharmacologic stress, per cardiology report Sizable inferior wall infarct. There is suggestion of mike-infarct ischemia at the base and apical edges of the infarct Calculated post stress ejection fraction 44% Assessment/Plan 1. Chest pain and troponin leak. Pain is atypical. His EKG is completely normal. Echocardiogram showed normal left ventricular systolic function. The troponin leak is likely due to renal failure as the patient's creatinine is 5.4. We will treat him medically with aspirin, Lipitor, Imdur, and Coreg. Lexiscan Cardiolite stress test showed "suggestion of mike-infarct ischemia at the base and apical edges of the infarct" Not Large enough to justify cardiac cath . Continue medical therapy as has no chest pain either. 2. History of congestive heart failure. Ejection fraction currently is normal. Continue on Coreg, Zaroxolyn 10 mg daily as well as Imdur 3. Renal failure likely due to patient's underlying lupus.S/P PermCath placement. HD pending 4. Diabetes. 5. Obesity. 6. Hyperlipidemia. 7. Anemia due to CKD Dw Dr Almeida and Lilly RUIZ tele. Subjective Subjective Underwent PermCath placement today.No chest pain or SOB. Objective Last 24 Hour Vital Signs Date Time Temp Pulse Resp B/P (MAP) Pulse Ox O2 Delivery O2 Flow Rate FiO2 07/29/17 14:50 71 16 151/90 98 Room Air 07/29/17 14:45 71 24 152/90 98 Room Air 07/29/17 14:40 72 17 150/91 99 Room Air 07/29/17 14:09 75 16 07/29/17 12:00 97.0 84 18 136/84 97 07/29/17 08:31 145/84 07/29/17 08:31 81 145/84 07/29/17 08:00 97.5 81 20 145/84 96 07/29/17 04:10 98.2 81 20 134/62 97 07/29/17 04:00 81 07/29/17 00:24 98.2 79 20 140/79 95 Room Air 07/29/17 00:00 101 07/28/17 21:33 85 145/86 07/28/17 20:23 98.1 85 20 145/86 96 Room Air 07/28/17 20:00 89 Intake and Output 07/28/17 07/29/17 19:00 07:00 Intake Total 360 ml Balance 360 ml Intake Oral 360 ml # Voids 2 2 Laboratory Tests Test 07/29/17 06:00 White Blood Count 12.6 K/UL (4.8-10.8) H Red Blood Count 2.52 M/UL (4.70-6.10) L Hemoglobin 7.8 G/DL (14.2-18.0) L Hematocrit 23.4 % (42.0-52.0) L Mean Corpuscular Volume 93 FL (80-99) Mean Corpuscular Hemoglobin 30.9 PG (27.0-31.0) Mean Corpuscular Hemoglobin Concent 33.4 G/DL (32.0-36.0) Red Cell Distribution Width 14.9 % (11.6-14.8) H Platelet Count 361 K/UL (150-450) Mean Platelet Volume 6.1 FL (6.5-10.1) L Neutrophils (%) (Auto) % (45.0-75.0) Lymphocytes (%) (Auto) % (20.0-45.0) Monocytes (%) (Auto) % (1.0-10.0) Eosinophils (%) (Auto) % (0.0-3.0) Basophils (%) (Auto) % (0.0-2.0) Differential Total Cells Counted 100 Neutrophils % (Manual) 71 % (45-75) Lymphocytes % (Manual) 20 % (20-45) Monocytes % (Manual) 5 % (1-10) Eosinophils % (Manual) 4 % (0-3) H Basophils % (Manual) 0 % (0-2) Band Neutrophils 0 % (0-8) Platelet Estimate Adequate Platelet Morphology Normal Hypochromasia 1+ Anisocytosis 1+ Sodium Level 136 MMOL/L (136-145) Potassium Level 5.3 MMOL/L (3.5-5.1) H Chloride Level 105 MMOL/L (98-107) Carbon Dioxide Level 21 MMOL/L (21-32) Anion Gap 10 mmol/L (5-15) Blood Urea Nitrogen 46 mg/dL (7-18) H Creatinine 5.0 MG/DL (0.55-1.30) H Estimat Glomerular Filtration Rate 14.2 mL/min (>60) Glucose Level 127 MG/DL (74-106) H Calcium Level 8.0 MG/DL (8.5-10.1) L Phosphorus Level 5.1 MG/DL (2.5-4.9) H Magnesium Level 1.3 MG/DL (1.8-2.4) L Total Bilirubin 0.2 MG/DL (0.2-1.0) Direct Bilirubin < 0.1 MG/DL (0.0-0.3) Aspartate Amino Transf (AST/SGOT) 12 U/L (15-37) L Alanine Aminotransferase (ALT/SGPT) 9 U/L (12-78) L Alkaline Phosphatase 91 U/L (46-116) Troponin I 0.151 ng/mL (0.000-0.056) Total Protein 7.4 G/DL (6.4-8.2) Albumin 2.7 G/DL (3.4-5.0) L Objective HEAD AND NECK: No JVD. LUNGS: Clear. CARDIOVASCULAR: Regular S1 and S2 with no gallop or murmur. ABDOMEN: Soft and nontender. EXTREMITIES: He has 1+ pitting edema. WILFREDO HECK Jul 29, 2017 16:31
--- NOTE | 2017-07-29 16:34 | Internal Med Progress Note ---
Subjective Date of Service: Jul 29, 2017 Physician Name Brian Laguna Attending Physician Angel Fontanez MD Current Medications Medications (Trade) Dose Ordered Sig/Yefri Route PRN Reason Start Time Stop Time Status Last Admin Dose Admin Allopurinol (Allopurinol) 300 mg DAILY ORAL 07/27/17 09:00 08/26/17 08:59 07/29/17 08:30 Aspirin (ASA) 325 mg DAILY ORAL 07/25/17 09:00 08/24/17 08:59 07/29/17 08:29 Atorvastatin Calcium (Lipitor) 80 mg QHS ORAL 07/24/17 21:00 08/23/17 20:59 07/28/17 21:33 Carvedilol (Coreg) 25 mg EVERY 12 HOURS ORAL 07/29/17 21:00 08/28/17 20:59 Cefazolin Sodium 50 ml @ 100 mls/hr ONCE ONCE IV 07/29/17 16:15 07/29/17 16:44 UNV Dextrose (Dextrose 50%) STAT PRN IV Hypoglycemia 07/24/17 03:30 08/23/17 03:29 Docusate Sodium (Colace) 100 mg THREE TIMES A DAY ORAL 07/24/17 18:00 08/23/17 17:59 07/29/17 12:11 EZETIMIBE (Zetia) 10 mg DAILY ORAL 07/24/17 09:00 08/23/17 08:59 07/29/17 08:29 Gabapentin (Neurontin) 300 mg THREE TIMES A DAY ORAL 07/24/17 09:00 08/23/17 08:59 07/29/17 12:12 Heparin Sodium (Porcine) (Heparin 5000 units/ml) 5,000 units EVERY 12 HOURS SUBQ 07/24/17 09:00 08/23/17 08:59 07/29/17 08:35 Hydralazine HCl (Apresoline) 25 mg Q4H PRN ORAL bp over 160 syst 07/29/17 12:15 08/28/17 12:14 Insulin Aspart (NovoLOG) BEFORE MEALS AND HS SUBQ 07/24/17 06:30 08/23/17 06:29 07/29/17 11:37 Insulin Detemir (Levemir) 10 units DAILY SUBQ 07/24/17 09:00 08/23/17 08:59 07/29/17 08:34 Isosorbide Mononitrate (Imdur) 60 mg DAILY ORAL 07/26/17 14:00 08/25/17 13:59 07/29/17 08:31 Pantoprazole (Protonix) 40 mg DAILY ORAL 07/24/17 17:00 08/23/17 16:59 07/29/17 08:30 Sevelamer Carbonate (Renvela) 1,600 mg THREE TIMES A DAY ORAL 07/29/17 13:00 08/28/17 12:59 Tamsulosin HCl (Flomax) 0.4 mg BID ORAL 07/24/17 18:00 08/23/17 20:59 07/29/17 08:30 Allergies: Coded Allergies: AZATHIOPRINE (Verified Adverse Reaction, Intermediate, nausea; vomiting, ) LORATADINE (Verified Adverse Reaction, Mild, nausea, 10/16/16) ROS Limited/Unobtainable: No Constitutional: Reports: no symptoms HEENT: Reports: no symptoms Cardiovascular: Reports: no symptoms Respiratory: Reports: no symptoms Gastrointestinal/Abdominal: Reports: no symptoms Genitourinary: Reports: no symptoms Neurologic/Psychiatric: Reports: no symptoms Subjective 66 YO M admitted with chest pain and renal failure. S/P permacath for dialysis today. Cover for Int Med-Dr Fontanez. Objective Last Vital Signs Date Time Temp Pulse Resp B/P (MAP) Pulse Ox O2 Delivery O2 Flow Rate FiO2 07/29/17 14:50 71 16 151/90 98 Room Air 07/29/17 12:00 97.0 Laboratory Tests Test 07/29/17 06:00 White Blood Count 12.6 K/UL (4.8-10.8) H Red Blood Count 2.52 M/UL (4.70-6.10) L Hemoglobin 7.8 G/DL (14.2-18.0) L Hematocrit 23.4 % (42.0-52.0) L Mean Corpuscular Volume 93 FL (80-99) Mean Corpuscular Hemoglobin 30.9 PG (27.0-31.0) Mean Corpuscular Hemoglobin Concent 33.4 G/DL (32.0-36.0) Red Cell Distribution Width 14.9 % (11.6-14.8) H Platelet Count 361 K/UL (150-450) Mean Platelet Volume 6.1 FL (6.5-10.1) L Neutrophils (%) (Auto) % (45.0-75.0) Lymphocytes (%) (Auto) % (20.0-45.0) Monocytes (%) (Auto) % (1.0-10.0) Eosinophils (%) (Auto) % (0.0-3.0) Basophils (%) (Auto) % (0.0-2.0) Differential Total Cells Counted 100 Neutrophils % (Manual) 71 % (45-75) Lymphocytes % (Manual) 20 % (20-45) Monocytes % (Manual) 5 % (1-10) Eosinophils % (Manual) 4 % (0-3) H Basophils % (Manual) 0 % (0-2) Band Neutrophils 0 % (0-8) Platelet Estimate Adequate Platelet Morphology Normal Hypochromasia 1+ Anisocytosis 1+ Sodium Level 136 MMOL/L (136-145) Potassium Level 5.3 MMOL/L (3.5-5.1) H Chloride Level 105 MMOL/L (98-107) Carbon Dioxide Level 21 MMOL/L (21-32) Anion Gap 10 mmol/L (5-15) Blood Urea Nitrogen 46 mg/dL (7-18) H Creatinine 5.0 MG/DL (0.55-1.30) H Estimat Glomerular Filtration Rate 14.2 mL/min (>60) Glucose Level 127 MG/DL (74-106) H Calcium Level 8.0 MG/DL (8.5-10.1) L Phosphorus Level 5.1 MG/DL (2.5-4.9) H Magnesium Level 1.3 MG/DL (1.8-2.4) L Total Bilirubin 0.2 MG/DL (0.2-1.0) Direct Bilirubin < 0.1 MG/DL (0.0-0.3) Aspartate Amino Transf (AST/SGOT) 12 U/L (15-37) L Alanine Aminotransferase (ALT/SGPT) 9 U/L (12-78) L Alkaline Phosphatase 91 U/L (46-116) Troponin I 0.151 ng/mL (0.000-0.056) Total Protein 7.4 G/DL (6.4-8.2) Albumin 2.7 G/DL (3.4-5.0) L Intake and Output 1/3/18 1/4/18 19:00 07:00 Intake Total 360 ml Balance 360 ml Intake Oral 360 ml # Voids 2 2 Objective General Appearance: WD/WN, no apparent distress, alert EENT: PERRL/EOMI, normal ENT inspection Neck: non-tender, normal alignment, supple, normal inspection Cardiovascular: normal peripheral pulses, normal rate, regular rhythm, no gallop/murmur, no JVD Respiratory/Chest: chest wall non-tender, lungs clear, normal breath sounds, no respiratory distress, no accessory muscle use Abdomen: normal bowel sounds, non tender, soft, no organomegaly, no mass Extremities: normal range of motion, non-tender Neurologic: vial gauger II-XII grossly normal, no motor/sensory deficits Skin: normal pigmentation, warm/dry Assessment/Plan Problem List: (1) Near syncope (2) Hyperkalemia (3) Anemia, iron deficiency Assessment & Plan: Cont IV venofer. Guaiac all stools. See GI consult. (4) Coronary artery disease (5) CHF (congestive heart failure) (6) COPD (chronic obstructive pulmonary disease) (7) Diabetes mellitus, type II Assessment & Plan: Continue novlog sliding scale. (8) Hypertension Assessment & Plan: Cont catapres and coreg (9) Hypercholesteremia Assessment & Plan: Continue zetia (10) Chest pain Assessment & Plan: Nuclear cardiac stress test=nonischemic; inferior wall infarct. See cardiology note. (11) End stage chronic kidney disease Assessment & Plan: Permacath placed 07/29/17. Await hemodialysis. See nephrology note. (12) Lupus (13) Diabetic nephropathy Status: progressing BRIAN LAGUNA Jul 29, 2017 16:34
[2017-07-29] MEDS ORDERED: ceFAZolin 1gm/50ml Premix 50 ML IV ONE (18:00)
[2017-07-29] MEDS: Atorvastatin 80mg tab ORAL SCH (21:05)
[2017-07-29] MEDS: Carvedilol 25mg Tab ORAL SCH (21:13)
--- NOTE | 2017-07-29 23:25 | General Progress Note ---
Assessment/Plan Assessment/Plan Assessment - Anemia, likely multifactorial (renal failure, chronic disease) - s/p Colonoscopy +/- EGD x 3 in 2017 - h/o colon polyps - ESRD - SLE / IDDM Recommendations - check stool for OB - monitor CBC - Iron supplementation PRN - Outpatient capsule endoscopy Subjective Allergies: Coded Allergies: AZATHIOPRINE (Verified Adverse Reaction, Intermediate, nausea; vomiting, ) LORATADINE (Verified Adverse Reaction, Mild, nausea, 10/16/16) Subjective Feels OK no abdominal pain tolerating PO for stress test today Objective Last 24 Hour Vital Signs Date Time Temp Pulse Resp B/P (MAP) Pulse Ox O2 Delivery O2 Flow Rate FiO2 07/29/17 21:13 84 171/96 07/29/17 20:00 63 07/29/17 20:00 97.3 56 20 159/84 96 Room Air 07/29/17 16:00 97.7 91 18 159/90 97 07/29/17 16:00 74 07/29/17 14:50 71 16 151/90 98 Room Air 07/29/17 14:45 71 24 152/90 98 Room Air 07/29/17 14:40 72 17 150/91 99 Room Air 07/29/17 14:09 75 16 07/29/17 12:00 78 07/29/17 12:00 97.0 84 18 136/84 97 07/29/17 08:31 145/84 07/29/17 08:31 81 145/84 07/29/17 08:00 79 07/29/17 08:00 97.5 81 20 145/84 96 07/29/17 04:10 98.2 81 20 134/62 97 07/29/17 04:00 81 07/29/17 00:24 98.2 79 20 140/79 95 Room Air 07/29/17 00:00 101 Intake and Output 07/28/17 07/29/17 19:00 07:00 Intake Total 360 ml Balance 360 ml Intake Oral 360 ml # Voids 2 2 Laboratory Tests 07/29/17 06:00: White Blood Count 12.6H, Red Blood Count 2.52L, Hemoglobin 7.8L, Hematocrit 23.4L, Mean Corpuscular Volume 93, Mean Corpuscular Hemoglobin 30.9, Mean Corpuscular Hemoglobin Concent 33.4, Red Cell Distribution Width 14.9H, Platelet Count 361, Mean Platelet Volume 6.1L, Neutrophils (%) (Auto) , Lymphocytes (%) (Auto) , Monocytes (%) (Auto) , Eosinophils (%) (Auto) , Basophils (%) (Auto) , Differential Total Cells Counted 100, Neutrophils % ( Manual) 71, Lymphocytes % (Manual) 20, Monocytes % (Manual) 5, Eosinophils % ( Manual) 4H, Basophils % (Manual) 0, Band Neutrophils 0, Platelet Estimate Adequate, Platelet Morphology Normal, Hypochromasia 1+, Anisocytosis 1+, Sodium Level 136, Potassium Level 5.3H, Chloride Level 105, Carbon Dioxide Level 21, Anion Gap 10, Blood Urea Nitrogen 46H, Creatinine 5.0H, Estimat Glomerular Filtration Rate 14.2, Glucose Level 127H, Calcium Level 8.0L, Phosphorus Level 5.1H, Magnesium Level 1.3L, Total Bilirubin 0.2, Direct Bilirubin < 0.1, Aspartate Amino Transf (AST/SGOT) 12L, Alanine Aminotransferase (ALT/SGPT) 9L, Alkaline Phosphatase 91, Troponin I 0.151H, Total Protein 7.4, Albumin 2.7L Height (Feet): 6 Height (Inches): 1.00 Weight (Pounds): 255 Objective WDWN AA man NCAT supple CTA RRR Soft ND NT no edema ARASELI SORTO Jul 29, 2017 23:25
[2017-07-30] VITALS: BP 149/83
[2017-07-30 04:00] VITALS: BP 140/78
[2017-07-30] MEDS: NovoLOG Insulin Flexpen SUBQ SCH ×2 (06:10→11:31)
[2017-07-30 07:34] LABS: BASOPHILS % (AUTO) 0.5 % (0.0-2.0); EOSINOPHILS % (AUTO) 7.7 % (0.0-3.0); HEMATOCRIT 25.6 % (42.0-52.0); HEMOGLOBIN 8.5 G/DL (14.2-18.0); LYMPHOCYTES % (AUTO) 23.3 % (20.0-45.0); MEAN CORPUSCULAR VOLUME 92 FL (80-99); MONOCYTES % (AUTO) 5.9 % (1.0-10.0); NEUTROPHILS % (AUTO) 62.6 % (45.0-75.0); PLATELET COUNT 372 K/UL (150-450); RED BLOOD COUNT 2.78 M/UL (4.70-6.10); RED CELL DISTRIBUTION WIDTH 15.2 % (11.6-14.8); WHITE BLOOD COUNT 12.4 K/UL (4.8-10.8)
[2017-07-30 08:00] VITALS: BP 139/81
[2017-07-30 08:13] LABS: ALANINE AMINOTRANSFERASE 10 U/L (12-78); ALBUMIN 2.8 G/DL (3.4-5.0); ALBUMIN/GLOBULIN RATIO 0.6 (1.0-2.7); ALKALINE PHOSPHATASE 95 U/L (46-116); ANION GAP 10 mmol/L (5-15); ASPARTATE AMINO TRANSFERASE 13 U/L (15-37); BILIRUBIN,TOTAL 0.2 MG/DL (0.2-1.0); BLOOD UREA NITROGEN 49 mg/dL (7-18); CALCIUM 8.3 MG/DL (8.5-10.1); CARBON DIOXIDE 23 MMOL/L (21-32); CHLORIDE 104 MMOL/L (98-107); CREATININE 5.1 MG/DL (0.55-1.30); PHOSPHORUS 5.3 MG/DL (2.5-4.9); POTASSIUM 4.8 MMOL/L (3.5-5.1); SODIUM 137 MMOL/L (136-145)
[2017-07-30] MEDS: Carvedilol 25mg Tab ORAL SCH (09:00)
[2017-07-30] MEDS: Imdur 30mg tab ORAL SCH (09:00)
[2017-07-30] MEDS: Tamsulosin 0.4mg cap ORAL SCH (09:25)
[2017-07-30] MEDS: Docusate 100mg cap ORAL SCH ×2 (09:25→12:06)
[2017-07-30] MEDS: Levemir Flexpen SUBQ SCH (09:28)
[2017-07-30] MEDS: Heparin 5000 units/ml inj SUBQ SCH (09:29)
[2017-07-30 12:00] VITALS: BP 157/84
--- NOTE | 2017-07-30 13:39 | Nephrology Progress Note ---
Assessment/Plan Problem List: (1) End stage chronic kidney disease Assessment: diabetic nephropathy (2) Lupus (3) Diabetic nephropathy (4) Elevated troponin I level Assessment CKD Cr stable, now has right permacath Lupus COPD DM HTN Obese High Cholestrol BPH Anemia CAD Plan Plan: Due dialysis today- DC after cardio clearance kayexelate pogiven 07/27/17 Adjust bp meds Add nitrate asa beta blockers SQ heparin, adjust dose Anemia mejía Optimize cardiac status monitor troponin I add Phos binders, adjust dose per orders discussed with RN Subjective ROS Limited/Unobtainable: No Constitutional: Reports: malaise Objective Objective Last 24 Hour Vital Signs Date Time Temp Pulse Resp B/P (MAP) Pulse Ox O2 Delivery O2 Flow Rate FiO2 07/30/17 12:00 97.2 71 22 157/84 99 Room Air 07/30/17 09:00 78 139/81 07/30/17 09:00 139/81 07/30/17 08:00 80 07/30/17 08:00 97.2 78 22 139/81 97 Room Air 07/30/17 04:00 89 07/30/17 04:00 97.7 84 20 140/78 95 Room Air 07/30/17 00:00 86 07/30/17 00:00 97.9 87 20 149/83 95 Room Air 07/29/17 21:13 84 171/96 07/29/17 20:00 63 07/29/17 20:00 97.3 56 20 159/84 96 Room Air 07/29/17 16:00 97.7 91 18 159/90 97 07/29/17 16:00 74 07/29/17 14:50 71 16 151/90 98 Room Air 07/29/17 14:45 71 24 152/90 98 Room Air 07/29/17 14:40 72 17 150/91 99 Room Air 07/29/17 14:09 75 16 Intake and Output 07/29/17 07/30/17 19:00 07:00 Intake Total 560 ml Balance 560 ml Intake Oral 360 ml IV Total 200 ml # Voids 1 Laboratory Tests 07/30/17 06:00: White Blood Count 12.4H, Red Blood Count 2.78L, Hemoglobin 8.5L, Hematocrit 25.6L, Mean Corpuscular Volume 92, Mean Corpuscular Hemoglobin 30.5, Mean Corpuscular Hemoglobin Concent 33.1, Red Cell Distribution Width 15.2H, Platelet Count 372, Mean Platelet Volume 6.2L, Neutrophils (%) (Auto) 62.6, Lymphocytes (%) (Auto) 23.3, Monocytes (%) (Auto) 5.9, Eosinophils (%) (Auto) 7.7H, Basophils (%) (Auto) 0.5, Sodium Level 137, Potassium Level 4.8, Chloride Level 104, Carbon Dioxide Level 23, Anion Gap 10, Blood Urea Nitrogen 49H, Creatinine 5.1H, Estimat Glomerular Filtration Rate 13.9, Glucose Level 142H, Calcium Level 8.3L, Phosphorus Level 5.3H, Magnesium Level 1.5, Total Bilirubin 0.2, Aspartate Amino Transf (AST/SGOT) 13L, Alanine Aminotransferase (ALT/SGPT) 10L, Alkaline Phosphatase 95, Troponin I 0.190H, Total Protein 7.8, Albumin 2.8L , Globulin 5.0, Albumin/Globulin Ratio 0.6L Height (Feet): 6 Height (Inches): 1.00 Weight (Pounds): 246 General Appearance: no apparent distress Cardiovascular: normal rate Respiratory/Chest: decreased breath sounds Abdomen: other - obese Objective no other change AVELINA MARTE Jul 30, 2017 13:38
[2017-07-30] MEDS ORDERED: FLOMAX0.4 MG ORAL (15:30)
[2017-07-30] MEDS ORDERED: ALLOPURINOL100 M1 ORAL (15:30)
[2017-07-30] MEDS ORDERED: RENVELA800 MG ORAL (15:30)
[2017-07-30] MEDS ORDERED: COREG25 MG ORAL (15:30)
[2017-07-30] MEDS ORDERED: ZETIA10 MG ORAL (15:30)
[2017-07-30] MEDS ORDERED: ASPIRIN325 MG ORAL (15:30)
[2017-07-30] MEDS ORDERED: ISOSORBIDE MONO30 M1 ORAL (15:30)
--- NOTE | 2017-07-30 15:43 | Discharge Summary ---
Discharge Summary Hospital Course Date of Admission Jul 23, 2017 at 23:54 Date of Discharge Admitting Diagnosis CELINA Lechuga is a 66 year old male who was admitted on Jul 23, 2017 at 23: 54 for Chest Pain Hospital Course Last 24 Hour Vital Signs Date Time Temp Pulse Resp B/P (MAP) Pulse Ox O2 Delivery O2 Flow Rate FiO2 07/30/17 15:35 Room Air 07/30/17 15:34 Room Air 07/30/17 15:32 Room Air 07/30/17 12:00 97.2 71 22 157/84 99 Room Air 07/30/17 12:00 69 07/30/17 11:20 Room Air 07/30/17 09:00 78 139/81 07/30/17 09:00 139/81 07/30/17 08:00 80 07/30/17 08:00 97.2 78 22 139/81 97 Room Air 07/30/17 04:00 89 07/30/17 04:00 97.7 84 20 140/78 95 Room Air 07/30/17 00:00 86 07/30/17 00:00 97.9 87 20 149/83 95 Room Air 07/29/17 21:13 84 171/96 07/29/17 20:00 63 07/29/17 20:00 97.3 56 20 159/84 96 Room Air 07/29/17 16:00 97.7 91 18 159/90 97 07/29/17 16:00 74 Physical Exam General: No acute distress, awake and alert HEENT: NCAT, sclera anicteric, PERRL, EOMI. Neck: Supple, no significant jugular venous distention, Lungs: Good inspiratory effort, clear to auscultation bilaterally, no Wheeze or Rales. Chest wall: Right side PermCath Heart: Regular rate and rhythm, normal S1/S2, no murmurs Abdomen: soft, nontender, nondistended. Normoactive bowel sounds. Obesity. Extremities: No Cyanosis , clubbing or edema. Neuro: A&O x 3, Able to move all extremities Skin: warm, no rashes or lesions Psych: Normal mood and affect Discharge Discharge Disposition Patient was discharged to Home (01) Discharge Diagnoses: Angel Fontanez MD Jul 30, 2017 15:43
--- NOTE | 2017-07-30 16:10 | Pulmonology Progress Note ---
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 got HD dc home with close f/u with primary business solution analyst Subjective ROS Limited/Unobtainable: No Constitutional: Reports: no symptoms HEENT: Repors: no symptoms Respiratory: Reports: no symptoms Allergies: Coded Allergies: AZATHIOPRINE (Verified Adverse Reaction, Intermediate, nausea; vomiting, ) LORATADINE (Verified Adverse Reaction, Mild, nausea, 10/16/16) Objective Last 24 Hour Vital Signs Date Time Temp Pulse Resp B/P (MAP) Pulse Ox O2 Delivery O2 Flow Rate FiO2 07/30/17 15:35 Room Air 07/30/17 15:34 Room Air 07/30/17 15:32 Room Air 07/30/17 12:00 97.2 71 22 157/84 99 Room Air 07/30/17 12:00 69 07/30/17 11:20 Room Air 07/30/17 09:00 78 139/81 07/30/17 09:00 139/81 07/30/17 08:00 80 07/30/17 08:00 97.2 78 22 139/81 97 Room Air 07/30/17 04:00 89 07/30/17 04:00 97.7 84 20 140/78 95 Room Air 07/30/17 00:00 86 07/30/17 00:00 97.9 87 20 149/83 95 Room Air 07/29/17 21:13 84 171/96 07/29/17 20:00 63 07/29/17 20:00 97.3 56 20 159/84 96 Room Air Intake and Output 07/29/17 07/30/17 19:00 07:00 Intake Total 560 ml Balance 560 ml Intake Oral 360 ml IV Total 200 ml # Voids 1 General Appearance: WD/WN HEENT: normocephalic Respiratory/Chest: chest wall non-tender, lungs clear Cardiovascular: normal peripheral pulses, normal rate Abdomen: normal bowel sounds, soft, non tender Extremities: no cyanosis Skin: no ulcers Neurologic/Psychiatric: no motor/sensory deficits Laboratory Tests 07/30/17 06:00: White Blood Count 12.4H, Red Blood Count 2.78L, Hemoglobin 8.5L, Hematocrit 25.6L, Mean Corpuscular Volume 92, Mean Corpuscular Hemoglobin 30.5, Mean Corpuscular Hemoglobin Concent 33.1, Red Cell Distribution Width 15.2H, Platelet Count 372, Mean Platelet Volume 6.2L, Neutrophils (%) (Auto) 62.6, Lymphocytes (%) (Auto) 23.3, Monocytes (%) (Auto) 5.9, Eosinophils (%) (Auto) 7.7H, Basophils (%) (Auto) 0.5, Sodium Level 137, Potassium Level 4.8, Chloride Level 104, Carbon Dioxide Level 23, Anion Gap 10, Blood Urea Nitrogen 49H, Creatinine 5.1H, Estimat Glomerular Filtration Rate 13.9, Glucose Level 142H, Calcium Level 8.3L, Phosphorus Level 5.3H, Magnesium Level 1.5, Total Bilirubin 0.2, Aspartate Amino Transf (AST/SGOT) 13L, Alanine Aminotransferase (ALT/SGPT) 10L, Alkaline Phosphatase 95, Troponin I 0.190H, Total Protein 7.8, Albumin 2.8L , Globulin 5.0, Albumin/Globulin Ratio 0.6L Current Medications Medications (Trade) Dose Ordered Sig/Yefri Route PRN Reason Start Time Stop Time Status Last Admin Dose Admin Allopurinol (Allopurinol) 300 mg DAILY ORAL 07/27/17 09:00 08/26/17 08:59 07/30/17 09:25 Aspirin (ASA) 325 mg DAILY ORAL 07/25/17 09:00 08/24/17 08:59 07/30/17 09:25 Atorvastatin Calcium (Lipitor) 80 mg QHS ORAL 07/24/17 21:00 08/23/17 20:59 07/29/17 21:05 Carvedilol (Coreg) 25 mg EVERY 12 HOURS ORAL 07/29/17 21:00 08/28/17 20:59 07/29/17 21:13 Dextrose (Dextrose 50%) STAT PRN IV Hypoglycemia 07/24/17 03:30 08/23/17 03:29 Docusate Sodium (Colace) 100 mg THREE TIMES A DAY ORAL 07/24/17 18:00 08/23/17 17:59 07/30/17 12:06 EZETIMIBE (Zetia) 10 mg DAILY ORAL 07/24/17 09:00 08/23/17 08:59 07/30/17 09:26 Gabapentin (Neurontin) 300 mg THREE TIMES A DAY ORAL 07/24/17 09:00 08/23/17 08:59 07/30/17 12:06 Heparin Sodium (Porcine) (Heparin 5000 units/ml) 5,000 units EVERY 12 HOURS SUBQ 07/24/17 09:00 08/23/17 08:59 07/30/17 09:29 Hydralazine HCl (Apresoline) 25 mg Q4H PRN ORAL bp over 160 syst 07/29/17 12:15 08/28/17 12:14 Insulin Aspart (NovoLOG) BEFORE MEALS AND HS SUBQ 07/24/17 06:30 08/23/17 06:29 07/30/17 11:31 Insulin Detemir (Levemir) 10 units DAILY SUBQ 07/24/17 09:00 08/23/17 08:59 07/30/17 09:28 Isosorbide Mononitrate (Imdur) 60 mg DAILY ORAL 07/26/17 14:00 08/25/17 13:59 07/29/17 08:31 Pantoprazole (Protonix) 40 mg DAILY ORAL 07/24/17 17:00 08/23/17 16:59 07/30/17 09:26 Sevelamer Carbonate (Renvela) 1,600 mg THREE TIMES A DAY ORAL 07/29/17 13:00 08/28/17 12:59 07/30/17 12:06 Tamsulosin HCl (Flomax) 0.4 mg BID ORAL 07/24/17 18:00 08/23/17 20:59 07/30/17 09:25 MARY GREEN Jul 30, 2017 16:10
[2017-07-30] MEDS ORDERED: Tubing IV Secondary IV ONE (16:24)
[2017-07-30] MEDS ORDERED: NS 500ML ONE (16:24)
--- NOTE | 2017-07-30 23:15 | Discharge Summary ---
DATE OF ADMISSION: 07/23/2017 DATE OF DISCHARGE: 07/30/2017 HISTORY AND HOSPITAL COURSE: This is a 66-year-old gentleman with past medical history significant for morbid obesity, congestive heart failure, COPD, diabetes type 2, hypertension, dyslipidemia, systemic lupus, and chronic renal insufficiency, who presented to the hospital complaining about chest pain and dizziness. Shortly after initial evaluation, the patient was admitted to telemetry with near syncope as well as chest pain, acute kidney injury on chronic renal insufficiency. Throughout the hospital course, the patient was consulted with Dr. Francis Swenson from Cardiology Electrophysiology, Dr. Racquel Mccurdy from Gastroenterology, Dr. Alejandra Carr from Pulmonary Critical Care and Dr. Nitin Oswald from Nephrology. 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 Medical therapy was presumed. Throughout the hospital course, the patient's renal function got progressively worse and subsequently had right-sided PermCath placement and dialysis was started and the patient's status improved. He is being discharged home today to be followed up with his primary marketing account executive, Dr. Howard Gerber, for dialysis as outpatient. The patient stated that he already contacted his primary Nephrology in [facility] and already set up for outpatient dialysis already as per the patient's discharge planning. FINAL DIAGNOSES: 1. Atypical chest pain with troponin leak, most likely secondary to demand ischemia. 2. Congestive heart failure with preserved ejection fraction. 3. Acute kidney injury on chronic renal disease, stage 4 to 5, on hemodialysis. 4. Diabetes type 2, insulin-dependent. 5. Morbid obesity. 6. Dyslipidemia. 7. Anemia of chronic kidney disease. MEDICATION ON DISCHARGE: Continue discharge medication list. ACTIVITY: As tolerated. DIET: A 2000-ADA cardiorenal diet. FOLLOWUP: The patient was advised to follow up with Dr. Gerber as outpatient for outpatient dialysis. Angel Fontanez M.D. DR: AUBREY JOB#: [id number] CC:
== END 2017-07-30 16:25 | disposition home or self-care (01) | DRG 280 ==
LOC: 2E 23:54
PROC: B2141ZZ Fluoroscopy of Right Heart using Low Osmolar Contrast (ICD-10-PCS; principal; 2017-07-29)
PROC: 5A1D70Z Performance of Urinary Filtration, Intermittent, Less than 6 Hours Per Day (ICD-10-PCS; principal; 2017-07-29)
PROC: 02H633Z Insertion of Infusion Device into Right Atrium, Percutaneous Approach (ICD-10-PCS; 2017-07-29)
DX: I13.2 Hypertensive heart and chronic kidney disease with heart failure and with stage 5 chronic kidney disease, or end stage renal disease (principal); N18.6 End stage renal disease; I21.A1 Myocardial infarction type 2; E11.22 Type 2 diabetes mellitus with diabetic chronic kidney disease; E87.5 Hyperkalemia; E66.01 Morbid (severe) obesity due to excess calories; D63.1 Anemia in chronic kidney disease; I50.9 Heart failure, unspecified; Z99.2 Dependence on renal dialysis; J44.9 Chronic obstructive pulmonary disease, unspecified; I25.10 Atherosclerotic heart disease of native coronary artery without angina pectoris; E78.00 Pure hypercholesterolemia, unspecified; N40.0 Benign prostatic hyperplasia without lower urinary tract symptoms; Z87.891 Personal history of nicotine dependence; Z68.32 Body mass index [BMI] 32.0-32.9, adult; D50.9 Iron deficiency anemia, unspecified; L93.0 Discoid lupus erythematosus; Z91.19 Patient's noncompliance with other medical treatment and regimen; Z79.4 Long term (current) use of insulin
CPT/HCPCS: 36415; 71045; 76000; 76775; 78452; 80048; 80053; 80061; 80076; 82270; 82378; 82550; 82607; 82728; 82746; 82962; 82977; 83036; 83540; 83550; 83615; 83735; 83880; 84100; 84443; 84484; 84550; 85007; 85025; 85044; 85060; 85610; 85651; 85730; 86140; 86850; 86900; 86901; 93005; 93017; 93306; J1815; J2785; S5561